=== PATIENT | female | born 1930 | race Caucasian/White ===

== ENCOUNTER 2017-06-23 09:33 | Inpatient (IN) | payer MEDICARE, OTHER ==
[2017-06-23] VITALS (22 sets, daily range): BP systolic 59–118; BP diastolic 47–82; PULSE 69–141; RESP 15–21; TEMP 97.7–100; O2SAT 93–100
[~2017-06-23] VITALS: Ht 165.1 cm; Wt 97.9 kg
[~2017-06-23 09:33] MED LIST: B COTAB3 PO; CALC-187 PO; CHOL1CAP6 PO; FLAX1300 PO; OMEGCAP19 PO; OXYB5TAB33 PO; VITA500T10 PO
[2017-06-23] MEDS ORDERED: MIDAZOLAM HCL 5 MG/ML VIAL (1 ML) ONE (09:51)
[2017-06-23] MEDS ORDERED: FLUMAZENIL 0.5 MG/5 ML VIAL ONE (09:56)
[2017-06-23] MEDS ORDERED: MIDAZOLAM HCL 5 MG/5 ML VIAL IV PUSH ONE (10:00)
[2017-06-23] MEDS ORDERED: MIDAZOLAM HCL 5 MG/ML VIAL (1 ML) IV ONE (10:00)
--- NOTE | 2017-06-23 10:10 | PD ---
HPI Chief Complaint: vomiting and diarrhea Time Seen by Provider: 09:47 Travel History International Travel<30 days: No Contact w/Intl Traveler<30days: No Traveled to known affect area: No History of Present Illness HPI This 86-year-old female complaining of vomiting and diarrhea. She says she vomited twice and had some diarrhea. She then started feeling very weak. Says the symptoms started around 2:00 this morning. She is not aware of any fever. She complaining of some tingling in her left hand and some sternal pressure which she has not had before. She has no history of heart disease. Her only medication is to treat him. She is brought by a friend who says that the patient appeared sluggish and weak while coming here. Patient says she is having a little bit of substernal discomfort and some tingling in her left arm. She has no history of heart disease. Her only medication is Ditropan. She is not short of breath. She does not smoke. She is not complaining of pain PFSH Past Medical History Cancer: Yes (RIGHT BREAST- 1 1/2 YRS WITH RADIATION ) Diabetes: No Diminished Hearing: No Hepatitis: No Hiatal Hernia: No Thyroid Disease: No Past Surgical History Abdominal Surgery: Yes (ABDOMINAL HYSTERECTOMY) Cardiac Surgery: No Ear Surgery: No Endocrine Surgery: No Eye Surgery: Yes (LEFT CATARACT EXTRACT.) Genitourinary Surgery: No Gynecologic Surgery: Yes (HYSTERECTOMY) Hysterectomy: Yes Oral Surgery: No Pacemaker: No Thoracic Surgery: Yes (RT BREAST LUMPECTOMY) Social History Alcohol Use: Yes (1 DRINK A DAY) Tobacco Use: No Substance Use: No Allergies-Medications (Allergen,Severity, Reaction): Coded Allergies: latex (Verified Allergy, Severe, 06/23/17) No Known Allergies (Verified Allergy, Unknown, 06/23/17) Reported Meds & Prescriptions Reported Meds & Active Scripts Active Reported [place] 3-6-9 Complex ([place] 3 Fatty Acids-[place] 6 Fa) Complex Cap 1 Cap PO 3X/ WEEK Flax Seed Oil (Flaxseed (Linseed)) 1,300 Mg Cap 2,600 Mg PO 4X/ WEEK Vitamin D-3 (Cholecalciferol) 1,000 Unit Tab 1,000 Unit PO DAILY B Complex (Vitamin B Complex) Tab 1 Cap PO DAILY Calcium 500/Vitamin D3 (Calcium Carbonate/Cholecalciferol) /Vit D3 Tab 1 PO DAILY Vitamin C (Ascorbic Acid) 500 Mg Tab 500 Mg PO DAILY Ditropan (Oxybutynin Chloride) 5 Mg Tab 15 Mg PO HS UNKNOWN DOSE Review of Systems General / Constitutional: No: Fever, Chills Eyes: No: Diploplia, Photophobia HENT: No: Headaches Cardiovascular: Positive: Chest Pain or Discomfort Respiratory: No: Shortness of Breath Gastrointestinal: Positive: Nausea, Vomiting, Diarrhea Genitourinary: No: Urgency, Frequency Musculoskeletal: No: Myalgias, Arthralgias Skin: No Rash, No Itching Neurologic: Positive: Weakness Psychiatric: No: Anxiety, Depression Hematologic/Lymphatic: No: Easy Bruising Physical Exam Narrative GENERAL: Well-developed female. She appears pale. Blood pressure is 70/50. Heart rate is 150 and irregular SKIN: Focused skin assessment warm/dry. HEAD: Atraumatic. Normocephalic. EYES: Pupils equal and round. No scleral icterus. No injection or drainage. ENT: No nasal bleeding or discharge. Mucous membranes pink and moist. NECK: Trachea midline. No JVD. CARDIOVASCULAR: Rapid irregular rate and rhythm. No murmur appreciated. RESPIRATORY: No accessory muscle use. Clear to auscultation. Breath sounds equal bilaterally. GASTROINTESTINAL: Abdomen soft, non-tender, nondistended. Hepatic and splenic margins not palpable. Rectal stool is brown and guaiac-negative MUSCULOSKELETAL: No obvious deformities. No clubbing. No cyanosis. No edema. NEUROLOGICAL: Awake and alert. No obvious cranial nerve deficits. Motor grossly within normal limits. Normal speech. PSYCHIATRIC: Appropriate mood and affect; insight and judgment normal. Data Data Last Documented VS Vital Signs Date Time Temp Pulse Resp B/P (MAP) Pulse Ox O2 Delivery O2 Flow Rate FiO2 06/23/17 11:08 144 85/70 06/23/17 10:29 17 93 Nasal Cannula 2.00 06/23/17 09:50 97.7 Orders Orders Electrocardiogram (06/23/17 09:49) Complete Blood Count With Diff (06/23/17 09:49) Comprehensive Metabolic Panel (06/23/17 09:49) Troponin I (06/23/17 09:49) Prothrombin Time / Inr (Pt) (06/23/17 09:49) Act Partial Throm Time (Ptt) (06/23/17 09:49) Urinalysis - C+S If Indicated (06/23/17 09:49) Magnesium (Mg) (06/23/17 09:49) Thyroid Stimulating Hormone (06/23/17 09:49) Midazolam Inj (Versed Inj) (06/23/17 09:51) Midazolam Inj (Versed Inj) (06/23/17 10:00) Flumazenil Inj (Romazicon Inj) (06/23/17 09:56) Ecg Monitoring (06/23/17 10:23) Blood Pressure (06/23/17 10:23) Vital Signs (06/23/17 10:23) Iv Access Insert/Monitor (06/23/17 10:23) Oximetry (06/23/17 10:23) Dextrose 5% In Wate... W/Amiodarone Inj (06/23/17 10:23) Dextrose 5% In Wate... W/Amiodarone Inj (06/23/17 10:38) Sodium Chloride 0.9% Flush (Ns Flush) (06/23/17 10:30) Dextrose 5% In Wate... W/Amiodarone Inj (06/23/17 10:23) Heparin Inj (Heparin Inj) (06/23/17 10:30) Heparin Inj (Heparin Inj) (06/23/17 16:30) Heparin Inj (Heparin Inj) (06/23/17 16:30) Heparin-D5w 25,000 U/250 Ml (Heparin-D5w (06/23/17 10:30) Cbc No Diff, Includes Plts (06/26/17 06:00) Act Partial Throm Time (Ptt) (06/23/17 17:23) Occult Blood (Hemoccult) Stool (06/23/17 10:23) Aspirin (Aspirin) (06/23/17 10:30) Ns + Kcl 40 Meq Inj (Ns + Kcl 40 Meq Inj (06/23/17 10:30) Flumazenil Inj (Romazicon Inj) (06/23/17 10:30) Potassium Chloride (Kcl) (06/23/17 10:30) Ondansetron Inj (Zofran Inj) (06/23/17 10:30) Potassium Chlor 20 Meq Premix (Kcl 20 Me (06/23/17 10:45) Chest, Single Ap (06/23/17 10:48) Sodium Chlor 0.9% 1000 Ml Inj (Ns 1000 M (06/23/17 11:00) Sodium Chlor 0.9% 1000 Ml Inj (Ns 1000 M (06/23/17 11:00) Sodium Chlorid 0.9% 500 Ml Inj (Ns 500 M (06/23/17 11:00) Admit To Inpatient (06/23/17 ) Code Status (06/23/17 11:10) Vital Signs (Adult) TARA.Q1H (06/23/17 11:10) Activity Bed Rest (06/23/17 11:10) Elevate Head Of Bed (06/23/17 11:10) Neuro Checks . ORDERED (06/23/17 11:10) Intake + Output Q1H (06/23/17 11:10) Bedside Glucose TARA.BGM (06/23/17 11:10) Diet Npo (06/23/17 Lunch) Sodium Chlor 0.9% 1000 Ml Inj (Ns 1000 M (06/23/17 11:10) Sodium Chloride 0.9% Flush (Ns Flush) (06/23/17 11:15) Sodium Chloride 0.9% Flush (Ns Flush) (06/23/17 21:00) Acetaminophen (Tylenol) (06/23/17 11:15) Acetamin-Hydrocod 325-5 Mg ([place]lap 5-325 (06/23/17 11:15) Famotidine (Pepcid) (06/23/17 21:00) Ondansetron Inj (Zofran Inj) (06/23/17 11:15) Albuterol-Ipratropium Neb (Duoneb Neb) (06/23/17 12:00) Albuterol Neb (Albuterol Neb) (06/23/17 11:15) Complete Blood Count With Diff (06/24/17 04:00) Comprehensive Metabolic Panel (06/24/17 04:00) Troponin I (06/23/17 16:00) Troponin I (06/23/17 22:00) Act Partial Throm Time (Ptt) (06/24/17 04:00) Prothrombin Time / Inr (Pt) (06/24/17 04:00) Magnesium (Mg) (06/24/17 04:00) Phosphorus (Po4) (06/24/17 04:00) Lactic Acid (06/24/17 04:00) Chest, Single Ap (06/24/17 ) Echo 2d Comp With Doppler (06/23/17 11:10) Resp Incentive Spirometry (06/23/17 ) Resp Oxygen Anuj C Titrat 1-4 L (06/23/17 ) Pt Request For Service (06/23/17 11:10) Derrick Engineer / Telemetry TARA.Q8H (06/23/17 11:10) Scd Bilateral/Knee High TARA.BID (06/23/17 11:10) ^ Initiate Protocol (06/23/17 11:10) Instruction (06/23/17 11:10) [facility] [place], [place] Nursing Information (06/23/17 11:15) Chlorhexidine 2% Cloth (Chlorhexidine 2% (06/24/17 04:00) Chlorhexidine 2% Cloth (Chlorhexidine 2% (06/23/17 11:15) Mrsa Pcr Surveillance (06/23/17 11:10) Docusate Sodium-Senna (Kika-Colace) (06/23/17 21:00) Magnesium Hydroxide Liq (Milk Of Magnesi (06/23/17 11:15) Sennosides (Senokot) (06/23/17 11:15) Bisacodyl Supp (Dulcolax Supp) (06/23/17 11:15) Lactulose Liq (Lactulose Liq) (06/23/17 11:15) Inpatient Certification (06/23/17 ) ^ Medication Alert (06/23/17 11:10) ^ Discontinue (06/23/17 11:10) Dextrose 5% In Wate... W/Amiodarone Inj (06/23/17 11:10) Dextrose 5% In Wate... W/Amiodarone Inj (06/23/17 11:20) Vital Signs (Adult) TARA.Q4H (06/23/17 11:10) Phenylephrine Inj (Neosynephrine Inj) (06/23/17 11:15) Terbutaline Inj (Brethine Inj) (06/23/17 11:15) Admit Order (Ed Use Only) (06/23/17 11:15) Phenylephrine Inj (Neosynephrine Inj) (06/23/17 11:15) Terbutaline Inj (Brethine Inj) (06/23/17 11:15) Morphine Inj (Morphine Inj) (06/23/17 11:15) Labs Laboratory Tests Test 06/23/17 10:00 White Blood Count 11.4 TH/MM3 Red Blood Count 4.99 MIL/MM3 Hemoglobin 14.7 GM/DL Hematocrit 46.4 % Mean Corpuscular Volume 92.8 FL Mean Corpuscular Hemoglobin 29.4 PG Mean Corpuscular Hemoglobin Concent 31.6 % Red Cell Distribution Width 14.3 % Platelet Count 263 TH/MM3 Mean Platelet Volume 9.2 FL Neutrophils (%) (Auto) 93.8 % Lymphocytes (%) (Auto) 4.0 % Monocytes (%) (Auto) 2.0 % Eosinophils (%) (Auto) 0.0 % Basophils (%) (Auto) 0.2 % Neutrophils # (Auto) 10.7 TH/MM3 Lymphocytes # (Auto) 0.5 TH/MM3 Monocytes # (Auto) 0.2 TH/MM3 Eosinophils # (Auto) 0.0 TH/MM3 Basophils # (Auto) 0.0 TH/MM3 CBC Comment DIFF FINAL Differential Comment Prothrombin Time 10.8 SEC Prothromb Time International Ratio 1.1 RATIO Activated Partial Thromboplast Time 26.6 SEC Blood Urea Nitrogen 28 MG/DL Creatinine 1.20 MG/DL Random Glucose 178 MG/DL Total Protein 6.9 GM/DL Albumin 3.6 GM/DL Calcium Level 8.2 MG/DL Magnesium Level 2.0 MG/DL Alkaline Phosphatase 78 U/L Aspartate Amino Transf (AST/SGOT) 37 U/L Alanine Aminotransferase (ALT/SGPT) 36 U/L Total Bilirubin 0.8 MG/DL Sodium Level 139 MEQ/L Potassium Level 3.4 MEQ/L Chloride Level 102 MEQ/L Carbon Dioxide Level 22.0 MEQ/L Anion Gap 15 MEQ/L Estimat Glomerular Filtration Rate 43 ML/MIN Troponin I LESS THAN 0.02 NG/ML Thyroid Stimulating Hormone 3rd Gen 3.880 uIU/ML MDM Medical Decision Making Medical Screen Exam Complete: Yes Emergency Medical Condition: Yes Medical Record Reviewed: Yes Differential Diagnosis Differential includes gastroenteritis, dysrhythmia, dehydration, myocardial ischemia Narrative Course EKG shows atrial fibrillation with rapid ventricular response. There is marked ST depression in V2 through V6 and also in the inferior and lateral leads. Patient says she has never had any heart trouble or been told of irregular heartbeats I believe this is acute. Her chest pain and hypotension warrant cardioversion. THis was explained to the patient. She was given Versed 5 mg and was cardioverted. Initially she was cardioverted with 100 J synchronized and she converted to sinus rhythm but soon degenerated back to atrial fibrillation. She was still sedated so the cardioversion was repeated with 150 J and she again converted to sinus rhythm however she went back to atrial fibrillation. After it was apparent that cardioversion would not be repeated she has been given Romazicon as her respirations are quite shallow. Hemoglobin is 14.7 with a white count of 11.4. Her potassium is slightly low at 3.4. BUNs is 28 with creatinine of 1.2. Troponin is normal. Patient responded to cardioversion but had immediate reversion to atrial fibrillation on 2 occasions. I discussed the case with Dr. Snyder who recommends that we initiate amiodarone and heparin, and transferred to the [facility] hospital. She has been given repeated boluses of fluid to maintain her pressure. He has been given aspirin. She will be given heparin and she'll be transferred to the intensive care unit. Case discussed with Dr. Topete Diagnosis Primary Impression: Atrial fibrillation with rapid ventricular response Additional Impressions: Hypotension Dehydration Admitting Information Admitting Physician Requests: it Bobo Silva MD Jun 23, 2017 10:10
[2017-06-23 10:18] LABS: AUTOMATED NEUTROPHIL # 10.7 TH/MM3 (1.8-7.7); BASOPHIL % 0.2 % (0.0-2.0); HEMATOCRIT 46.4 % (35.0-46.0); HEMOGLOBIN 14.7 GM/DL (11.6-15.3); LYMPHOCYTE # 0.5 TH/MM3 (1.0-4.8); MEAN CELL VOLUME 92.8 FL (80.0-100.0); MEAN CORPUSCULAR HEMOGLOBIN 29.4 PG (27.0-34.0); MEAN CORPUSCULAR HGB CONC 31.6 % (32.0-36.0); MEAN PLATELET VOLUME 9.2 FL (7.0-11.0); MONOCYTE # 0.2 TH/MM3 (0-0.9); NEUT % 93.8 % (16.0-70.0); PLATELET COUNT 263 TH/MM3 (150-450); RED BLOOD COUNT 4.99 MIL/MM3 (4.00-5.30); RED CELL DISTRIBUTION WIDTH 14.3 % (11.6-17.2); WHITE BLOOD COUNT 11.4 TH/MM3 (4.0-11.0)
[2017-06-23] MEDS: AMIODARONE INJ 150 MG in DEXTROSE 5% IN WATER 100ML INJ 97 ML IV ONE ×4 (10:23→11:08)
[2017-06-23] MEDS ORDERED: AMIODARONE INJ 150 MG in DEXTROSE 5% IN WATER 100ML INJ 97 ML IV ONE ×2 (10:23)
[2017-06-23 10:24] LABS: CHLORIDE 102 MEQ/L (98-107); SODIUM (NA) 139 MEQ/L (136-145)
[2017-06-23 10:27] LABS: CALCIUM 8.2 MG/DL (8.5-10.1)
[2017-06-23 10:28] LABS: ALBUMIN 3.6 GM/DL (3.4-5.0); BLOOD UREA NITROGEN 28 MG/DL (7-18); GLUCOSE,RANDOM 178 MG/DL (74-106)
[2017-06-23] MEDS ORDERED: NS + KCL 40 MEQ INJ 1,000 ML IV SCH (10:30)
[2017-06-23] MEDS ORDERED: ONDANSETRON HCL 4 MG/2 ML VIAL IV PUSH ONE (10:30)
[2017-06-23] MEDS ORDERED: POTASSIUM CHLORIDE 20 MEQ CONTROLLED RELEASE TAB PO ONE (10:30)
[2017-06-23] MEDS ORDERED: FLUMAZENIL 0.5 MG/5 ML VIAL IV PUSH ONE (10:30)
[2017-06-23] MEDS ORDERED: HEPARIN SODIUM - IV 10,000 UNITS/10 ML VIAL IV PUSH ONE (10:30)
[2017-06-23] MEDS ORDERED: ASPIRIN 325 MG TAB PO ONE (10:30)
[2017-06-23] MEDS ORDERED: SODIUM CHLORIDE 0.9% FLUSH 10 ML FLUSH IVF PRN (10:30)
[2017-06-23 10:31] LABS: ALT (GPT) 36 U/L (10-53); AST (GOT) 37 U/L (15-37); GLOMERULAR FILTRATION RATE 43 ML/MIN (>89)
[2017-06-23 10:33] LABS: TOTAL BILIRUBIN ADULT 0.8 MG/DL (0.2-1.0); TOTAL PROTEIN 6.9 GM/DL (6.4-8.2)
[2017-06-23 10:34] LABS: ALKALINE PHOSPHATASE 78 U/L (45-117)
[2017-06-23 10:36] LABS: TROPONIN I LESS THAN 0.02 NG/ML (0.02-0.05)
[2017-06-23] MEDS ORDERED: AMIODARONE INJ 450 MG in DEXTROSE 5% IN WATE(EXCEL) INJ 241 ML IV SCH ×2 (10:38)
[2017-06-23] MEDS ORDERED: POTASSIUM CHLOR 20 MEQ PREMIX 100 ML IV ONE (10:45)
[2017-06-23] MEDS ORDERED: SODIUM CHLORID 0.9% 500 ML INJ 500 ML IV ONE (11:00)
[2017-06-23] MEDS ORDERED: SODIUM CHLOR 0.9% 1000 ML INJ 1,000 ML IV ONE ×2 (11:00)
[2017-06-23] MEDS: SODIUM CHLOR 0.9% 1000 ML INJ 1,000 ML IV SCH ×2 (11:10→23:05)
[2017-06-23] MEDS ORDERED: AMIODARONE INJ 150 MG in DEXTROSE 5% IN WATER 100ML INJ 100 ML IV ONE ×2 (11:10)
[2017-06-23] MEDS ORDERED: RESP: ALBUTEROL 2.5 MG/3 ML NEB (PRN) INH (11:15)
[2017-06-23] MEDS ORDERED: MORPHINE SULFATE 2 MG/ML INJ IV PUSH PRN (11:15)
[2017-06-23] MEDS ORDERED: ONDANSETRON HCL 4 MG/2 ML VIAL IV PUSH PRN (11:15)
[2017-06-23] MEDS ORDERED: CHLORHEXIDINE GLUCONATE 2 % 1 PACK (2 CLOTHS) TOP PRN (11:15)
[2017-06-23] MEDS ORDERED: SENNOSIDES 8.6 MG TAB PO PRN (11:15)
[2017-06-23] MEDS ORDERED: MAGNESIUM HYDROXIDE SUSP 30 ML CUP PO PRN (11:15)
[2017-06-23] MEDS ORDERED: BISACODYL 10 MG SUPP RECTAL PRN (11:15)
[2017-06-23] MEDS ORDERED: MISCELLANEOUS NURSING INFORMATION XX SCH (11:15)
[2017-06-23] MEDS ORDERED: LACTULOSE SYRUP 20 GM/30 ML CUP PO PRN (11:15)
[2017-06-23] MEDS ORDERED: ACETAMINOPHEN 325 MG TAB PO PRN (11:15)
[2017-06-23] MEDS ORDERED: PHENYLEPHRINE INJ 40 MG in DEXTROSE 5% IN WATE 500 ML INJ 496 ML IV PRN ×2 (11:15)
[2017-06-23] MEDS ORDERED: SODIUM CHLORIDE 0.9% FLUSH 10 ML FLUSH IV FLUSH PRN (11:15)
[2017-06-23] MEDS ORDERED: PHENYLEPHRINE INJ 160 MG in DEXTROSE 5% IN WATE 500 ML INJ 484 ML IV PRN ×2 (11:15)
[2017-06-23] MEDS ORDERED: ACETAMINOPHEN/HYDROcodone 325 MG/5 MG TAB PO PRN (11:15)
[2017-06-23] MEDS ORDERED: TERBUTALINE INJ 1 MG/ML AMP SQ PRN ×2 (11:15)
[2017-06-23 11:16] LABS: INTERNATIONAL NORMALIZED RATIO 1.1 RATIO; PROTHROMBIN TIME - PATIENT 10.8 SEC (9.8-11.6)
--- NOTE | 2017-06-23 11:19 | RADRPT ---
EXAM DATE/TIME: 06/23/2017 10:56 [facility] COMPARISON: No previous studies available for comparison. INDICATIONS : Nausea, vomiting, dizziness. MEDICAL HISTORY : right breast cancer SURGICAL HISTORY : right lumpectomy ENCOUNTER: Initial ACUITY: 1 day PAIN SCORE: 0/10 LOCATION: Bilateral chest FINDINGS: A single portable frontal view the chest shows chronic interstitial changes throughout the lungs bila terally. No intra-alveolar infiltrates. No effusions. Heart is at the upper limits of normal in terms of size. Aorta is calcified. Scoliotic and degenerative spine. CONCLUSION: Chronic interstitial changes. No acute abnormality. Fred William Jr., MD on June 23, 2017 at 11:16 Board Certified Radiologist. This report was verified electronically.
[2017-06-23] MEDS: HEPARIN-D5W 25,000 U/250 ML 250 ML IV PRN (11:38)
[2017-06-23 11:50] LABS: BILIRUBIN, URINE NEG (NEG); BLOOD, URINE NEG (NEG); GLUCOSE,URINE NEG (NEG); KETONE, URINE 40 mg/dL (NEG); NITRITE,URINE NEG (NEG); URINE LEUKOCYTE ESTERASE NEG (NEG)
[2017-06-23] MEDS ORDERED: RESP: ALBUTEROL 2.5 MG/IPRATROPIUM 0.5 MG NEB (SCH) INH (12:00)
[2017-06-23] MEDS ORDERED: SODIUM CHLOR 0.9% 1000 ML INJ 1,000 ML IV SCH (12:15)
[2017-06-23 12:21] LABS: URINE COLOR YELLOW (YELLW/STRAW); WBC, URINE 0-2 /hpf (0-5)
[2017-06-23] MEDS ORDERED: DITR15TA PO (14:13)
[2017-06-23] MEDS ORDERED: HEPARIN SODIUM - IV 10,000 UNITS/10 ML VIAL IV PUSH PRN ×2 (16:30)
[2017-06-23] MEDS ORDERED: POTASSIUM CHLOR 20 MEQ PREMIX 100 ML IV PRN ×2 (18:00→18:30)
[2017-06-23] MEDS ORDERED: POTASSIUM CHLOR 40 MEQ PREMIX 100 ML IV PRN ×2 (18:00→18:30)
[2017-06-23] MEDS ORDERED: AMIODARONE INJ 450 MG in DEXTROSE 5% IN WATE(EXCEL) INJ 241 ML IV PRN ×2 (18:00)
--- NOTE | 2017-06-23 18:02 | HHI.HP ---
[facility] Service Critical Care Medicine Primary Care Physician Sveta Marquis MD Admission Diagnosis RAPID ATRIAL FIBRILLATION, HYPOTENSION Diagnosis: (1) Atrial fibrillation with RVR Diagnosis: Principal (2) Hypotension Diagnosis: Principal (3) NSTEMI (non-ST elevated myocardial infarction) Diagnosis: Principal (4) Viral syndrome Diagnosis: Principal (5) CORETTA (acute kidney injury) Diagnosis: Principal (6) Dehydration Diagnosis: Principal Chief Complaint: Atrial fibrillation with rapid ventricular response Hypotension Elevated troponin/NSTEMI Travel History International Travel<30 Days: No Contact w/Intl Traveler <30 Da: No Traveled to Known Affected Are: No Sepsis Criteria SIRS Criteria (2 or more): Heart rate over 90 Criteria Outcome: Meets SIRS criteria History of Present Illness Patient is a 86-year-old female with past medical history significant only for breast cancer. She presented to [place] emergency department with complaints of generalized weakness and vomiting and diarrhea. Denied fever. Initially complained of some sternal pressure also. In the ER also had some substernal discomfort and tingling in her left UE. Initially was profoundly hypotensive with systolic blood pressure in the mid 50s heart rate in mid 140s. EKG shows atrial fibrillation with rapid ventricular response with ST depression in V2 through V6 and the inferior and lateral leads. Due to hemodynamic instability patient patient was given Versed 5 mg and was cardioverted initially with 100 J synchronized and she converted to sinus rhythm but went back to atrial fibrillation; repeated with 150 J and again converted to NSR and went back to atrial fibrillation. Respiration was quite shallow with the Versed and so further cardioversions not attempted. Labs showed WBC 11.4. potassium is slightly low at 3.4. BUN 28 with creatinine of 1.2. Initial Troponin was normal. Dr. Miramontes discussed the case with Dr. Snyder and started IV amiodarone and IV heparin and transferred to [facility]. Patient received multiple boluses of crystalloid and also received aspirin I evaluated the patient once she arrived in the main hospital ICU. Patient appears to have converted to sinus rhythm currently remains on amiodarone and IV heparin. Appears in mild distress and anxious. Her new troponin is 3. 2-D echo is pending. Continue IV heparin and IV amiodarone. Placed on scheduled aspirin. Placed on low-dose Coreg. Also will start Lipitor 40 mg daily at bedtime. Review of Systems ROS Limitations: Other (as per HPI) Past Family Social History Allergies: Coded Allergies: latex (Verified Allergy, Severe, 06/23/17) No Known Allergies (Verified Allergy, Unknown, 06/23/17) Past Medical History History of right sided breast cancer treated with lumpectomy and radiation History of squamous cell cancer of the leg Past Surgical History Cataract surgery Right lumpectomy Abdominal hysterectomy Reported Medications [place] 3-6-9 Complex ([place] 3 Fatty Acids-[place] 6 Fa) Complex Cap 1 Cap PO 3X/ WEEK Flax Seed Oil (Flaxseed (Linseed)) 1,300 Mg Cap 2,600 Mg PO 4X/ WEEK Vitamin D-3 (Cholecalciferol) 1,000 Unit Tab 1,000 Unit PO DAILY B Complex (Vitamin B Complex) Tab 1 Cap PO DAILY Calcium 500/Vitamin D3 (Calcium Carbonate/Cholecalciferol) /Vit D3 Tab 1 PO DAILY Vitamin C (Ascorbic Acid) 500 Mg Tab 500 Mg PO DAILY Ditropan (Oxybutynin Chloride) 5 Mg Tab 15 Mg PO HS Active Ordered Medications Reviewed Family History Noncontributory Social History Apparently consumes 1 alcoholic beverage daily Physical Exam Vital Signs Vital Signs Date Time Temp Pulse Resp B/P (MAP) Pulse Ox O2 Delivery O2 Flow Rate FiO2 06/23/17 16:00 79 06/23/17 15:38 98 Nasal Cannula 3.00 06/23/17 15:01 98.0 73 18 110/69 (83) 06/23/17 14:00 79 06/23/17 12:25 137 16 102/74 (83) 98 06/23/17 12:15 124 16 97/56 (70) 06/23/17 12:05 100.0 124 17 110/82 (91) Nasal Cannula 2.00 06/23/17 12:00 100.0 125 16 94/68 (77) Nasal Cannula 2.00 06/23/17 11:56 133 17 78/58 (65) 100 Nasal Cannula 2.00 06/23/17 11:50 129 18 85/70 (75) 96 Nasal Cannula 2.00 06/23/17 11:48 124 17 78/62 (67) 100 Nasal Cannula 06/23/17 11:22 120 68/55 06/23/17 11:00 135 76/55 06/23/17 10:40 140 17 79/54 (62) 96 Nasal Cannula 2.00 06/23/17 10:30 133 85/58 06/23/17 10:29 125 17 94/49 (64) 93 Nasal Cannula 2.00 06/23/17 10:21 128 16 75/51 (59) 93 Nasal Cannula 2.00 06/23/17 10:16 133 16 74/48 (57) 97 Nasal Cannula 2.00 06/23/17 10:10 135 16 78/59 (65) 94 Nasal Cannula 2.00 06/23/17 10:00 138 65/52 (56) Nasal Cannula 2.00 06/23/17 09:50 97.7 141 16 59/47 (51) Physical Exam GENERAL: Well-developed female. Appears pale. Denies chest pain or palpitation SKIN: Warm and dry HEAD: Atraumatic. Normocephalic. EYES: Pupils equal and round. ENT: No nasal bleeding or discharge. NECK: Trachea midline. No JVD. CARDIOVASCULAR: S1-S2 normal. Unable to appreciate murmurs. Receiving IV heparin and IV amiodarone RESPIRATORY: No accessory muscle use. Clear to auscultation. Breath sounds equal bilaterally. GASTROINTESTINAL: Abdomen soft, non-tender, nondistended. Hepatic and splenic margins not palpable. MUSCULOSKELETAL: No obvious deformities. NEUROLOGICAL: Awake and alert. No obvious cranial nerve deficits. Motor grossly within normal limits. Normal speech. Laboratory Laboratory Tests Test 06/23/17 10:00 06/23/17 11:41 06/23/17 13:30 06/23/17 16:59 White Blood Count 11.4 Red Blood Count 4.99 Hemoglobin 14.7 Hematocrit 46.4 Mean Corpuscular Volume 92.8 Mean Corpuscular Hemoglobin 29.4 Mean Corpuscular Hemoglobin Concent 31.6 Red Cell Distribution Width 14.3 Platelet Count 263 Mean Platelet Volume 9.2 Neutrophils (%) (Auto) 93.8 Lymphocytes (%) (Auto) 4.0 Monocytes (%) (Auto) 2.0 Eosinophils (%) (Auto) 0.0 Basophils (%) (Auto) 0.2 Neutrophils # (Auto) 10.7 Lymphocytes # (Auto) 0.5 Monocytes # (Auto) 0.2 Eosinophils # (Auto) 0.0 Basophils # (Auto) 0.0 CBC Comment DIFF FINAL Differential Comment Prothrombin Time 10.8 Prothromb Time International Ratio 1.1 Activated Partial Thromboplast Time 26.6 Blood Urea Nitrogen 28 Creatinine 1.20 Random Glucose 178 Total Protein 6.9 Albumin 3.6 Calcium Level 8.2 Magnesium Level 2.0 Alkaline Phosphatase 78 Aspartate Amino Transf (AST/SGOT) 37 Alanine Aminotransferase (ALT/SGPT) 36 Total Bilirubin 0.8 Sodium Level 139 Potassium Level 3.4 Chloride Level 102 Carbon Dioxide Level 22.0 Anion Gap 15 Estimat Glomerular Filtration Rate 43 Troponin I LESS THAN 0.02 Thyroid Stimulating Hormone 3rd Gen 3.880 Urine Collection Type CLEAN CATCH Urine Color YELLOW Urine Turbidity CLEAR Urine pH 6.0 Urine Specific [place] 1.016 Urine Protein TRACE Urine Glucose (UA) NEG Urine Ketones 40 Urine Occult Blood NEG Urine Nitrite NEG Urine Bilirubin NEG Urine Leukocyte Esterase NEG Urine WBC 0-2 Microscopic Urinalysis Comment CULT NOT INDICATED Urine Collection Time 1141 Nasal Screen MRSA (PCR) MRSA NOT DETECTED Test 06/23/17 17:09 Result Diagram: 06/23/17 1000 06/23/17 1000 Imaging Chest x-ray shows chronic appearing interstitial infiltrates Septic Shock Reassessment Septic shock perfusion: reassessment completed Caprini VTE Risk Assessment Caprini VTE Risk Assessment: Mod/High Risk (score >= 2) Caprini Risk Assessment Model Point Value = 1 Point Value = 2 Point Value = 3 Point Value = 5 Age 41-60 Minor surgery BMI > 25 kg/m2 Swollen legs Varicose veins or History of unexplained or recurrent spontaneous Oral contraceptives or hormone replacement Sepsis (< 1 month) Serious lung disease, including pneumonia (< 1 month) Abnormal pulmonary function Acute myocardial infarction Congestive heart failure (< 1 month) History of inflammatory bowel disease Medical patient at bed rest Age 61-74 Arthroscopic surgery Major open surgery (> 45 min) Laparoscopic surgery (> 45 min) Malignancy Confined to bed (> 72 hours) Immobilizing plaster cast Central venous access Age >= 75 History of VTE Family history of VTE Factor V Leiden Prothrombin [id number] Lupus anticoagulant Anticardiolipin antibodies Elevated serum homocysteine Heparin-induced thrombocytopenia Other congenital or acquired thrombophilia Stroke (< 1 month) Elective arthroplasty Hip, pelvis, or leg fracture Acute spinal cord injury (< 1 month) Prophylaxis Regimen Total Risk Factor Score Risk Level Prophylaxis Regimen 0-1 Low Early ambulation 2 Moderate Order ONE of the following: *Sequential Compression Device (SCD) *Heparin 5000 units SQ BID 3-4 Higher Order ONE of the following medications: *Heparin 5000 units SQ TID *Enoxaparin/Lovenox 40 mg SQ daily (WT < 150 kg, CrCl > 30 mL/min) *Enoxaparin/Lovenox 30 mg SQ daily (WT < 150 kg, CrCl > 10-29 mL/min) *Enoxaparin/Lovenox 30 mg SQ BID (WT < 150 kg, CrCl > 30 mL/min) AND/OR *Sequential Compression Device (SCD) 5 or more Highest Order ONE of the following medications: *Heparin 5000 units SQ TID (Preferred with Epidurals) *Enoxaparin/Lovenox 40 mg SQ daily (WT < 150 kg, CrCl > 30 mL/min) *Enoxaparin/Lovenox 30 mg SQ daily (WT < 150 kg, CrCl > 10-29 mL/min) *Enoxaparin/Lovenox 30 mg SQ BID (WT < 150 kg, CrCl > 30 mL/min) AND *Sequential Compression Device (SCD) Assessment and Plan Assessment and Plan NEURO: - Minimize sedation - Supplement thiamine RESP: - Nasal cannula oxygen, if needed - IS every 4 hours while awake - Check for influenza due to bilateral lung infiltrates CV: Atrial fibrillation with RVR Hypotension Elevated troponin/non-ST elevation OR - Status post cardioversion 2 - On amiodarone infusion converted to sinus rhythm - Continue IV heparin - Continue maintenance IV fluids - Start aspirin and beta blockers. Start Lipitor 40 mg daily - Await 2-D echo, discussed with Dr. Snyder - Normal saline IV fluids 84 mL per hour, await 2d echo, cardiology consult, repeat troponin - Adam-Synephrine if needed to keep map above 65 GI: - Heart healthy diet, PO famotidine : Acute kidney injury Dehydration - Monitor renal function closely. Continue maintenance IV fluids - Received fluid boluses in the ED ID: - Check influenza antigen. Observe without antibiotics HEME: - Monitor CBC, CMP, coags ENDO: Hypokalemia - Electrolyte replacement per protocol PROPH: - Bilateral lower extremity SCDs. IV heparin, PO famotidine LINES: - Utilize peripheral IVs, central line if needed CC time 45 min Code Status Full Discussed Condition With Dr. Snyder Problem Qualifiers (1) Hypotension: Qualified Codes: I95.9 - Hypotension, unspecified Christiano Kuhn MD Jun 23, 2017 18:02
[2017-06-23] MEDS ORDERED: ASPIRIN 81 MG CHEW TAB CHEW SCH (18:15)
[2017-06-23] MEDS ORDERED: MAGNESIUM SULFATE INJ 2 GM in SODIUM CHLORIDE 0.9% INJ 96 ML IV PRN (18:30)
[2017-06-23] MEDS ORDERED: MAGNESIUM SULFATE INJ 4 GM in SODIUM CHLORIDE 0.9% INJ 92 ML IV PRN (18:30)
[2017-06-23] MEDS ORDERED: SODIUM PHOSPHATE INJ 30 MMOL in SODIUM CHLOR 0.9% 250 ML INJ 240 ML IV PRN (18:30)
[2017-06-23] MEDS ORDERED: MAGNESIUM OXIDE 400 MG TAB PO PRN (18:30)
[2017-06-23] MEDS ORDERED: POTASSIUM CHLORIDE 25 MEQ EFFERVESCENT TAB PO PRN (18:30)
[2017-06-23] MEDS ORDERED: POTASSIUM PHOSPHATE MONOBASIC 500 MG TAB PO/TUBE PRN (18:30)
[2017-06-23] MEDS ORDERED: POTASSIUM PHOSPHATE MONOBASIC 500 MG TAB PO PRN (18:30)
[2017-06-23] MEDS ORDERED: POTASSIUM PHOSPHATE INJ 30 MMOL in SODIUM CHLOR 0.9% 250 ML INJ 250 ML IV PRN (18:45)
--- NOTE | 2017-06-23 18:52 | PD.CONS ---
HPI Consult Requested By Primary Care Physician Sveta Marquis MD History of Present Illness 86-year-old F with past medical history significant for breast cancer that presented to [facility] emergency department with complaints of generalized weakness, vomiting and diarrhea and mild chest pressure. She was found hypotensive on Afib with RVR 140s with ST depression in V2 through V6 and the inferior and lateral leads. Due to hemodynamic instability she was cardioverted but went back to atrial fibrillation; repeated with 150 J and again converted to NSR and went back to atrial fibrillation. IV amiodarone and IV heparin and transferred to [facility]. Cardiology consulted for further management and evaluation. Review of Systems Consitutional: DENIES: Fatigue, Fever, Chills, Weight gain, Weight loss Eyes: DENIES: Amaurosis Fug[place], Change in vision HEENT: DENIES: Lightheadedness, Change in hearing Respiratory: DENIES: See HPI, Cough, Snoring, Shortness of breath, Wheezing, Sputum production Cardiovascular: COMPLAINS OF: See HPI, DENIES: Chest pain, Palpitations, Syncope, Tachycardia Gastrointestinal: COMPLAINS OF: Nausea, Vomiting, Change in bowel habits, DENIES: Reflux, Bloody stools, Melena Genitourinary: DENIES: Urinary incontinence, Difficulty voiding Integumentary: DENIES: Rash Neurologic: DENIES: Tingling or numbness, Memory problems, Poor Balance, Stroke symptoms Musculoskeletal: DENIES: Joint pain, Muscle pain, Limited range of motion, Back pain Psychiatric: DENIES: Anxiety, Depression, Sleep disturbances Hematologic: DENIES: Bruising tendencies, Bleeding tendencies Endocrine: DENIES: Weight gain, Weight loss, Thyroid disease Past Family Social History Allergies: Coded Allergies: latex (Verified Allergy, Severe, 06/23/17) No Known Allergies (Verified Allergy, Unknown, 06/23/17) Past Medical History History of right sided breast cancer treated with lumpectomy and radiation History of squamous cell cancer of the leg Past Surgical History Cataract surgery Right lumpectomy Abdominal hysterectomy Reported Medications Reported Meds & Active Scripts Active Reported Ditropan XL 24 HR (Oxybutynin Chloride) 15 Mg Tab 15 Mg PO HS Active Ordered Medications Current Medications Medications (Trade) Dose Ordered Sig/Joseph Route Start Time Stop Time Status Last Admin (NS Flush) 2 ml UNSCH PRN IVF 06/23/17 10:30 (Heparin Inj) 5,000 units UNSCH PRN IV PUSH 06/23/17 16:30 (Heparin Inj) 2,500 units UNSCH PRN IV PUSH 06/23/17 16:30 Heparin Sodium/ Dextrose 250 ml @ 8 mls/hr TITRATE PRN IV 06/23/17 10:30 06/23/17 11:38 Sodium Chloride 1,000 ml @ 84 mls/hr [id number] IV 06/23/17 11:10 06/23/17 11:10 (NS Flush) 2 ml UNSCH PRN IV FLUSH 06/23/17 11:15 (NS Flush) 2 ml BID IV FLUSH 06/23/17 21:00 (Tylenol) 650 mg Q6H PRN PO 06/23/17 11:15 ([place] 5-325 Mg) 1 tab Q4H PRN PO 06/23/17 11:15 (Morphine Inj) 2 mg Q2H PRN IV PUSH 06/23/17 11:15 (Pepcid) 20 mg Q12HR PO 06/23/17 21:00 (Zofran Inj) 4 mg Q6H PRN IV PUSH 06/23/17 11:15 (Albuterol Neb) 2.5 mg Q2HR NEB PRN INH 06/23/17 11:15 Miscellaneous Information 1 [id number] XX 06/23/17 11:15 (Chlorhexidine 2% Cloth) 3 pack Taper DAILY@04 TOP 06/24/17 04:00 06/20/18 03:59 (Chlorhexidine 2% Cloth) 3 pack UNSCH PRN TOP 06/23/17 11:15 (Kika-Colace) 1 tab BID PO 06/23/17 21:00 (Milk Of Magnesia Liq) 30 ml Q12H PRN PO 06/23/17 11:15 (Senokot) 17.2 mg Q12H PRN PO 06/23/17 11:15 (Dulcolax Supp) 10 mg DAILY PRN RECTAL 06/23/17 11:15 (Lactulose Liq) 30 ml DAILY PRN PO 06/23/17 11:15 Amiodarone HCl 450 mg/Dextrose 250 ml @ 33.33 mls/ hr Q7H31M PRN IV 06/23/17 18:00 Phenylephrine HCl 160 mg/Dextrose 500 ml @ 7.5 mls/hr TITRATE PRN IV 06/23/17 11:15 (Brethine Inj) 1 mg UNSCH PRN SQ 06/23/17 11:15 Potassium Chloride 100 ml @ 50 mls/hr Q2H PRN IV 06/23/17 18:00 Potassium Chloride 100 ml @ 50 mls/hr Q2H PRN IV 06/23/17 18:00 (K-Lyte Cl Eff) 50 meq UNSCH PRN PO 06/23/17 18:30 Potassium Chloride 100 ml @ 25 mls/hr UNSCH PRN IV 06/23/17 18:30 Potassium Chloride 100 ml @ 50 mls/hr Q2H PRN IV 06/23/17 18:30 Magnesium Sulfate 4 gm/Sodium Chloride 100 ml @ 50 mls/hr UNSCH PRN IV 06/23/17 18:30 (Mag-Ox) 800 mg UNSCH PRN PO 06/23/17 18:30 Magnesium Sulfate 2 gm/Sodium Chloride 100 ml @ 50 mls/hr UNSCH PRN IV 06/23/17 18:30 (K-Phos) 2,000 mg Q4H PRN PO 06/23/17 18:30 Sodium Phosphate 30 mmol/Sodium Chloride 250 ml @ 42 mls/hr UNSCH PRN IV 06/23/17 18:30 (K-Phos) 2,000 mg UNSCH PRN PO/TUBE 06/23/17 18:30 Potassium Phosphate 30 mmol/ Sodium Chloride 260 ml @ 42 mls/hr UNSCH PRN IV 06/23/17 18:45 (Vitamin B1) 100 mg DAILY PO 06/24/17 09:00 (Aspirin Chew) 81 mg DAILY CHEW 06/23/17 18:15 UNV (Coreg) 3.125 mg Q12HR PO 06/23/17 21:00 (Duoneb Neb) 1 ampule Q6HR NEB INH 06/23/17 22:00 (Lipitor) 40 mg HS PO 06/23/17 21:00 Family History Noncontributory Social History Apparently consumes 1 alcoholic beverage daily Physical Exam Vital Signs Vital Signs Date Time Temp Pulse Resp B/P (MAP) Pulse Ox O2 Delivery O2 Flow Rate FiO2 06/23/17 18:00 79 06/23/17 16:00 79 06/23/17 15:38 98 Nasal Cannula 3.00 06/23/17 15:01 98.0 73 18 110/69 (83) 06/23/17 14:00 79 06/23/17 12:25 137 16 102/74 (83) 98 06/23/17 12:15 124 16 97/56 (70) 06/23/17 12:05 100.0 124 17 110/82 (91) Nasal Cannula 2.00 06/23/17 12:00 100.0 125 16 94/68 (77) Nasal Cannula 2.00 06/23/17 11:56 133 17 78/58 (65) 100 Nasal Cannula 2.00 06/23/17 11:50 129 18 85/70 (75) 96 Nasal Cannula 2.00 06/23/17 11:48 124 17 78/62 (67) 100 Nasal Cannula 06/23/17 11:22 120 68/55 06/23/17 11:00 135 76/55 06/23/17 10:40 140 17 79/54 (62) 96 Nasal Cannula 2.00 06/23/17 10:30 133 85/58 06/23/17 10:29 125 17 94/49 (64) 93 Nasal Cannula 2.00 06/23/17 10:21 128 16 75/51 (59) 93 Nasal Cannula 2.00 06/23/17 10:16 133 16 74/48 (57) 97 Nasal Cannula 2.00 06/23/17 10:10 135 16 78/59 (65) 94 Nasal Cannula 2.00 06/23/17 10:00 138 65/52 (56) Nasal Cannula 2.00 06/23/17 09:50 97.7 141 16 59/47 (51) Physical Exam GENERAL: Well-nourished, well-developed patient. SKIN: Warm and dry. HEAD: Normocephalic. EYES: No scleral icterus. No injection or drainage. NECK: Supple, trachea midline. No JVD or lymphadenopathy. CARDIOVASCULAR: Regular rate and rhythm without murmurs, gallops, or rubs. RESPIRATORY: Breath sounds equal bilaterally. No accessory muscle use. GASTROINTESTINAL: Abdomen soft, non-tender, nondistended. EXTREMITIES: No cyanosis, or edema. NEUROLOGICAL: Awake, alert, and oriented x 3. Non-focal. Laboratory Laboratory Tests Test 06/23/17 10:00 06/23/17 11:41 06/23/17 13:30 06/23/17 16:59 White Blood Count 11.4 Red Blood Count 4.99 Hemoglobin 14.7 Hematocrit 46.4 Mean Corpuscular Volume 92.8 Mean Corpuscular Hemoglobin 29.4 Mean Corpuscular Hemoglobin Concent 31.6 Red Cell Distribution Width 14.3 Platelet Count 263 Mean Platelet Volume 9.2 Neutrophils (%) (Auto) 93.8 Lymphocytes (%) (Auto) 4.0 Monocytes (%) (Auto) 2.0 Eosinophils (%) (Auto) 0.0 Basophils (%) (Auto) 0.2 Neutrophils # (Auto) 10.7 Lymphocytes # (Auto) 0.5 Monocytes # (Auto) 0.2 Eosinophils # (Auto) 0.0 Basophils # (Auto) 0.0 CBC Comment DIFF FINAL Differential Comment Prothrombin Time 10.8 Prothromb Time International Ratio 1.1 Activated Partial Thromboplast Time 26.6 Blood Urea Nitrogen 28 Creatinine 1.20 Random Glucose 178 Total Protein 6.9 Albumin 3.6 Calcium Level 8.2 Magnesium Level 2.0 Alkaline Phosphatase 78 Aspartate Amino Transf (AST/SGOT) 37 Alanine Aminotransferase (ALT/SGPT) 36 Total Bilirubin 0.8 Sodium Level 139 Potassium Level 3.4 Chloride Level 102 Carbon Dioxide Level 22.0 Anion Gap 15 Estimat Glomerular Filtration Rate 43 Troponin I LESS THAN 0.02 3.06 Thyroid Stimulating Hormone 3rd Gen 3.880 Urine Collection Type CLEAN CATCH Urine Color YELLOW Urine Turbidity CLEAR Urine pH 6.0 Urine Specific [place] 1.016 Urine Protein TRACE Urine Glucose (UA) NEG Urine Ketones 40 Urine Occult Blood NEG Urine Nitrite NEG Urine Bilirubin NEG Urine Leukocyte Esterase NEG Urine WBC 0-2 Microscopic Urinalysis Comment CULT NOT INDICATED Urine Collection Time 1141 Nasal Screen MRSA (PCR) MRSA NOT DETECTED Test 06/23/17 17:09 Activated Partial Thromboplast Time 79.4 Result Diagram: 06/23/17 1000 06/23/17 1000 Imaging Last Impressions Chest X-Ray 06/23/17 1048 Signed Impressions: Service Date/Time: May 10:56 - CONCLUSION: Chronic interstitial changes. No acute abnormality. Fred William Jr., MD Assessment and Plan Problem List: (1) Atrial fibrillation with RVR ICD Codes: I48.91 - Unspecified atrial fibrillation Plan: Patient converted to sinus rhythm. Currently remains on amiodarone and IV heparin. Denies CV complaints. Troponin elevation in the setting of several cardioversions. Recommendations: - Continue IV heparin and IV amiodarone. - Echo - Telemetry - Avoid electrolytes abnormalities - IV hydration -Keep NPO for LHC +/- PCI Risk benefits of LHC +/- PCI including but not limited to neurovascular trauma, bleeding, renal failure, stroke, emergent cardiac surgery and , have been explain to patient. He understands and agreed to proceed. Thank for the opportunity to participate in the care of this patient Further therapy to be determine (2) Hypotension ICD Codes: I95.9 - Hypotension, unspecified (3) Viral syndrome ICD Codes: B34.9 - Viral infection, unspecified (4) Dehydration ICD Codes: E86.0 - Dehydration (5) [place] (acute kidney injury) ICD Codes: N17.9 - Acute kidney failure, unspecified Problem Qualifiers (1) Hypotension: Qualified Codes: I95.9 - Hypotension, unspecified Parminder Wilder MD Jun 23, 2017 18:52
[2017-06-23 19:47] LABS: MAGNESIUM 1.8 MG/DL (1.5-2.5); PHOSPHORUS 3.7 MG/DL (2.5-4.9)
[2017-06-23] MEDS ORDERED: AMIODARONE INJ 450 MG in SODIUM CHLOR 0.9% 250 ML INJ 241 ML IV PRN (20:00)
[2017-06-23] MEDS: RESP: ALBUTEROL 2.5 MG/IPRATROPIUM 0.5 MG NEB (SCH) INH (20:26)
[2017-06-23] MEDS: CARVEDILOL 3.125 MG TAB PO SCH (20:52)
[2017-06-23] MEDS: SODIUM CHLORIDE 0.9% FLUSH 10 ML FLUSH IV FLUSH SCH (20:52)
[2017-06-23] MEDS: ATORVASTATIN 40 MG TAB PO SCH (20:52)
[2017-06-23] MEDS: FAMOTIDINE 20 MG TAB PO SCH (20:52)
[2017-06-23] MEDS: DOCUSATE SODIUM 50 MG/SENNA 8.6 MG TAB PO SCH (20:53)
--- NOTE | 2017-06-23 22:51 | EKG ---
Date Performed: 06/23/2017 Time Performed: 09:49:39 PTAGE: 86 years EKG: ATRIAL FIBRILLATION WITH RAPID VENTRICULAR RESPONSE MARKED ST DEPRESSION, CONSIDER SUBENDO CARDIAL INJURY ABNORMAL ECG PREVIOUS TRACING : 05/08/2012 13.45 Compared to prior tracing, now in Afib with RVR with extens major ST/T wave changes DOCTOR: Patricio Gong Interpretating Date/Time 06/23/2017 22:50:09
[2017-06-23] MEDS ORDERED: diphenhydrAMINE HCL 25 MG CAP PO PRN (23:00)
[2017-06-24] VITALS (11 sets, daily range): BP systolic 119–190; BP diastolic 60–87; PULSE 60–75; RESP 19–21; TEMP 98.3–99.3; O2SAT 92–99
[2017-06-24 02:21] LABS: AUTOMATED NEUTROPHIL # 5.7 TH/MM3 (1.8-7.7); BASOPHIL % 0.3 % (0.0-2.0); EOSINOPHIL % 0.1 % (0.0-4.0); HEMOGLOBIN 12.3 GM/DL (11.6-15.3); LYMPH % 7.2 % (9.0-44.0); LYMPHOCYTE # 0.5 TH/MM3 (1.0-4.8); MEAN CORPUSCULAR HEMOGLOBIN 31.1 PG (27.0-34.0); MEAN CORPUSCULAR HGB CONC 34.2 % (32.0-36.0); MEAN PLATELET VOLUME 8.5 FL (7.0-11.0); MONO % 8.5 % (0.0-8.0); MONOCYTE # 0.6 TH/MM3 (0-0.9); NEUT % 83.9 % (16.0-70.0); PLATELET COUNT 184 TH/MM3 (150-450); RED BLOOD COUNT 3.96 MIL/MM3 (4.00-5.30); RED CELL DISTRIBUTION WIDTH 14.6 % (11.6-17.2); WHITE BLOOD COUNT 6.8 TH/MM3 (4.0-11.0)
[2017-06-24 02:35] LABS: PROTHROMBIN TIME - PATIENT 10.2 SEC (9.8-11.6)
[2017-06-24 02:52] LABS: ALBUMIN 2.7 GM/DL (3.4-5.0); BICARBONATE 24.8 MEQ/L (21.0-32.0); CALCIUM 7.1 MG/DL (8.5-10.1); CALCIUM-PROTEIN CORRECTED 8.1 MG/DL (8.5-10.1); CHOLESTEROL/ HDL RATIO 2.9 RATIO; CREATININE 1.15 MG/DL (0.50-1.00); HDL CHOLESTEROL 54.7 MG/DL (40.0-60.0); MAGNESIUM 1.7 MG/DL (1.5-2.5); PHOSPHORUS 3.5 MG/DL (2.5-4.9); TOTAL BILIRUBIN ADULT 0.3 MG/DL (0.2-1.0); TOTAL PROTEIN 5.3 GM/DL (6.4-8.2)
[2017-06-24] MEDS: RESP: ALBUTEROL 2.5 MG/IPRATROPIUM 0.5 MG NEB (SCH) INH ×4 (03:39→19:55)
[2017-06-24] MEDS: CHLORHEXIDINE GLUCONATE 2 % 1 PACK (2 CLOTHS) TOP SCH (04:00)
--- NOTE | 2017-06-24 07:39 | RADRPT ---
EXAM DATE/TIME: 06/24/2017 06:08 [facility] COMPARISON: CHEST SINGLE AP, June 23, 2017, 10:56. INDICATIONS : Short of breath MEDICAL HISTORY : Carcinoma, breast. SURGICAL HISTORY : right lumpectomy ENCOUNTER: Subsequent ACUITY: 2 days PAIN SCORE: Non-responsive. LOCATION: Bilateral chest FINDINGS: A single portable frontal view the chest shows coarse interstitial markings throughout both lungs. Th aileen are unchanged. No intra-alveolar infiltrates. No effusions. Heart is at the upper limits of annie l in terms of size. A scoliotic and degenerative spine. CONCLUSION: Chronic interstitial changes. No acute infiltrates. Fred William Jr., MD on June 24, 2017 at 7:34 Board Certified Radiologist. This report was verified electronically.
[2017-06-24] MEDS: FAMOTIDINE 20 MG TAB PO SCH ×2 (08:40→21:22)
[2017-06-24] MEDS: CARVEDILOL 3.125 MG TAB PO SCH ×2 (08:41→21:23)
[2017-06-24] MEDS: THIAMINE HCL 100 MG TAB PO SCH (08:41)
[2017-06-24] MEDS: ASPIRIN 81 MG CHEW TAB CHEW SCH (08:41)
[2017-06-24] MEDS: DOCUSATE SODIUM 50 MG/SENNA 8.6 MG TAB PO SCH ×2 (08:41→21:22)
[2017-06-24] MEDS: SODIUM CHLORIDE 0.9% FLUSH 10 ML FLUSH IV FLUSH SCH ×2 (08:41→21:21)
--- NOTE | 2017-06-24 08:50 | HHI.PR ---
Subjective Remarks Dritical clinical quality assurance specialist notes: Patient is a 86-year-old female with past medical history significant only for breast cancer. She presented to [facility] emergency department with complaints of generalized weakness and vomiting and diarrhea. Denied fever. Initially complained of some sternal pressure also. In the ER also had some substernal discomfort and tingling in her left UE. Initially was profoundly hypotensive with systolic blood pressure in the mid 50s heart rate in mid 140s. EKG shows atrial fibrillation with rapid ventricular response with ST depression in V2 through V6 and the inferior and lateral leads. Due to hemodynamic instability patient patient was given Versed 5 mg and was cardioverted initially with 100 J synchronized and she converted to sinus rhythm but went back to atrial fibrillation; repeated with 150 J and again converted to NSR and went back to atrial fibrillation. Respiration was quite shallow with the Versed and so further cardioversions not attempted. Labs showed WBC 11.4. potassium is slightly low at 3.4. BUN 28 with creatinine of 1.2. Initial Troponin was normal. Dr. Miramontes discussed the case with Dr. Snyder and started IV amiodarone and IV heparin and transferred to [facility]. Patient received multiple boluses of crystalloid and also received aspirin, Agriculture Specialist recommended Amiodarone drip and IV Heparin, converted to sinus rhythm, Coreg and Statin. 06/24: Seen by cryptographic center specialist, recommended to continue IV Heparin and IV Amiodarone, Echocardiogram, Telemetry, Left Heart Cath, seen in her bedroom after [facility], Selective right and left coronary angiography, left ventriculogram, EF 60% , Diagnosis of non obstructive Coronary artery disease, Elevated left ventricular end diastolic pressure, preserved left ventricular systolic function. recommended to continue aggressive medical management, continue rate control for atrial fibrillation, start oral anticoagulation upon discharge, follow with Cardiology after discharge. No nausea, vomit or diarrhea. Objective Vital Signs Date Time Temp Pulse Resp B/P (MAP) Pulse Ox O2 Delivery O2 Flow Rate FiO2 06/24/17 08:17 92 06/24/17 04:08 98 06/24/17 04:00 98.3 63 21 140/69 (92) 95 06/24/17 04:00 60 06/24/17 00:00 98.3 65 19 119/60 (79) 99 06/23/17 22:00 98.0 75 21 118/64 (82) 95 1/25/18 20:53 74 116/59 06/23/17 20:27 100 Nasal Cannula 1.00 06/23/17 20:00 98.9 69 15 111/70 (84) 97 06/23/17 20:00 69 06/23/17 18:00 79 06/23/17 16:00 79 06/23/17 15:38 98 Nasal Cannula 3.00 06/23/17 15:01 98.0 73 18 110/69 (83) 06/23/17 14:00 79 06/23/17 12:25 137 16 102/74 (83) 98 06/23/17 12:15 124 16 97/56 (70) 06/23/17 12:05 100.0 124 17 110/82 (91) Nasal Cannula 2.00 06/23/17 12:00 100.0 125 16 94/68 (77) Nasal Cannula 2.00 06/23/17 11:56 133 17 78/58 (65) 100 Nasal Cannula 2.00 06/23/17 11:50 129 18 85/70 (75) 96 Nasal Cannula 2.00 06/23/17 11:48 124 17 78/62 (67) 100 Nasal Cannula 06/23/17 11:22 120 68/55 06/23/17 11:00 135 76/55 06/23/17 10:40 140 17 79/54 (62) 96 Nasal Cannula 2.00 06/23/17 10:30 133 85/58 06/23/17 10:29 125 17 94/49 (64) 93 Nasal Cannula 2.00 06/23/17 10:21 128 16 75/51 (59) 93 Nasal Cannula 2.00 06/23/17 10:16 133 16 74/48 (57) 97 Nasal Cannula 2.00 06/23/17 10:10 135 16 78/59 (65) 94 Nasal Cannula 2.00 06/23/17 10:00 138 65/52 (56) Nasal Cannula 2.00 06/23/17 09:50 97.7 141 16 59/47 (51) I/O 06/23/17 06/23/17 06/23/17 06/24/17 06/24/17 06/24/17 07:00 15:00 23:00 07:00 15:00 23:00 Intake Total 2700 ml 200 ml Output Total 850 ml 0 ml Balance 2700 ml -850 ml 200 ml Intake Oral 200 ml IV Total 2700 ml Output Urine Total 850 ml 0 ml Bladder Scan Volume Amount 20 ml # Bowel Movements 0 Result Diagram: 06/24/17 0207 06/24/17 0207 Imaging Last Impressions Chest X-Ray 06/24/17 0600 Signed Impressions: Service Date/Time: Saturday, June 24, 2017 06:08 - CONCLUSION: Chronic interstitial changes. No acute infiltrates. Fred William Jr., MD Procedures 06/24: LHC, Selective right and left coronary angiography, left ventriculogram, EF 60%, Diagnosis of non obstructive Coronary artery disease, Elevated left ventricular end diastolic pressure, preserved left ventricular systolic function. recommended to continue aggressive medical management, continue rate control for atrial fibrillation, start oral anticoagulation upon discharge, follow with Cardiology after discharge. Other Results Laboratory Tests Test 06/23/17 10:00 06/23/17 11:41 06/23/17 13:30 06/23/17 16:59 Thyroid Stimulating Hormone 3rd Gen 3.880 uIU/ML Urine Collection Type CLEAN CATCH Urine Color YELLOW Urine Turbidity CLEAR Urine pH 6.0 Urine Specific [place] 1.016 Urine Protein TRACE mg/dL Urine Glucose (UA) NEG mg/dL Urine Ketones 40 mg/dL Urine Occult Blood NEG Urine Nitrite NEG Urine Bilirubin NEG Urine Leukocyte Esterase NEG Urine WBC 0-2 /hpf Microscopic Urinalysis Comment CULT NOT INDICATED Urine Collection Time 1141 Nasal Screen MRSA (PCR) MRSA NOT DETECTED Troponin I 3.06 NG/ML Test 06/23/17 18:42 06/24/17 02:07 White Blood Count 6.8 TH/MM3 Red Blood Count 3.96 MIL/MM3 Hemoglobin 12.3 GM/DL Hematocrit 36.0 % Mean Corpuscular Volume 91.0 FL Mean Corpuscular Hemoglobin 31.1 PG Mean Corpuscular Hemoglobin Concent 34.2 % Red Cell Distribution Width 14.6 % Platelet Count 184 TH/MM3 Mean Platelet Volume 8.5 FL Neutrophils (%) (Auto) 83.9 % Lymphocytes (%) (Auto) 7.2 % Monocytes (%) (Auto) 8.5 % Eosinophils (%) (Auto) 0.1 % Basophils (%) (Auto) 0.3 % Neutrophils # (Auto) 5.7 TH/MM3 Lymphocytes # (Auto) 0.5 TH/MM3 Monocytes # (Auto) 0.6 TH/MM3 Eosinophils # (Auto) 0.0 TH/MM3 Basophils # (Auto) 0.0 TH/MM3 CBC Comment DIFF FINAL Differential Comment Prothrombin Time 10.2 SEC Prothromb Time International Ratio 1.0 RATIO Activated Partial Thromboplast Time 46.7 SEC Blood Urea Nitrogen 30 MG/DL Creatinine 1.15 MG/DL Random Glucose 111 MG/DL Total Protein 5.3 GM/DL Albumin 2.7 GM/DL Calcium Level 7.1 MG/DL Phosphorus Level 3.5 MG/DL Magnesium Level 1.7 MG/DL Alkaline Phosphatase 64 U/L Aspartate Amino Transf (AST/SGOT) 106 U/L Alanine Aminotransferase (ALT/SGPT) 76 U/L Total Bilirubin 0.3 MG/DL Sodium Level 143 MEQ/L Potassium Level 3.6 MEQ/L Chloride Level 112 MEQ/L Carbon Dioxide Level 24.8 MEQ/L Anion Gap 6 MEQ/L Estimat Glomerular Filtration Rate 45 ML/MIN Lactic Acid Level 1.1 mmol/L Protein Corrected Calcium 8.1 MG/DL Total Creatine Kinase 241 U/L Creatine Kinase MB 19.0 NG/ML Creatine Kinase MB % 7.9 % Triglycerides Level 55 MG/DL Cholesterol Level 159 MG/DL LDL Cholesterol 93 MG/DL HDL Cholesterol 54.7 MG/DL Cholesterol/HDL Ratio 2.90 RATIO Objective Remarks GENERAL: No acute distress. SKIN: Warm and dry HEAD: Atraumatic. Normocephalic. EYES: Pupils equal and round. ENT: No nasal bleeding or discharge. NECK: Trachea midline. No JVD. CARDIOVASCULAR: S1-S2 normal. Unable to appreciate murmurs. Receiving IV heparin and IV amiodarone RESPIRATORY: No accessory muscle use. Clear to auscultation. Breath sounds equal bilaterally. GASTROINTESTINAL: Abdomen soft, non-tender, nondistended. Hepatic and splenic margins not palpable. MUSCULOSKELETAL: No obvious deformities. NEUROLOGICAL: Awake and alert. No obvious cranial nerve deficits. Motor grossly within normal limits. Normal speech. Medications and IVs Current Medications Medications (Trade) Dose Ordered Sig/Joseph Route Start Time Stop Time Status Last Admin (Heparin Inj) 5,000 units UNSCH PRN IV PUSH 06/23/17 16:30 (Heparin Inj) 2,500 units UNSCH PRN IV PUSH 06/23/17 16:30 Heparin Sodium/ Dextrose 250 ml @ 8 mls/hr TITRATE PRN IV 06/23/17 10:30 06/23/17 11:38 Sodium Chloride 1,000 ml @ 84 mls/hr [id number] IV 06/23/17 11:10 06/23/17 11:10 (NS Flush) 2 ml UNSCH PRN IV FLUSH 06/23/17 11:15 (NS Flush) 2 ml BID IV FLUSH 06/23/17 21:00 06/23/17 20:52 (Tylenol) 650 mg Q6H PRN PO 06/23/17 11:15 ([place] 5-325 Mg) 1 tab Q4H PRN PO 06/23/17 11:15 (Morphine Inj) 2 mg Q2H PRN IV PUSH 06/23/17 11:15 (Pepcid) 20 mg Q12HR PO 06/23/17 21:00 06/24/17 08:40 (Zofran Inj) 4 mg Q6H PRN IV PUSH 06/23/17 11:15 (Albuterol Neb) 2.5 mg Q2HR NEB PRN INH 06/23/17 11:15 Miscellaneous Information 1 Q361D XX 06/23/17 11:15 (Chlorhexidine 2% Cloth) 3 pack Taper DAILY@04 TOP 06/24/17 04:00 06/20/18 03:59 (Chlorhexidine 2% Cloth) 3 pack UNSCH PRN TOP 06/23/17 11:15 (Kika-Colace) 1 tab BID PO 06/23/17 21:00 (Milk Of Magnesia Liq) 30 ml Q12H PRN PO 06/23/17 11:15 (Senokot) 17.2 mg Q12H PRN PO 06/23/17 11:15 (Dulcolax Supp) 10 mg DAILY PRN RECTAL 06/23/17 11:15 (Lactulose Liq) 30 ml DAILY PRN PO 06/23/17 11:15 Phenylephrine HCl 160 mg/Dextrose 500 ml @ 7.5 mls/hr TITRATE PRN IV 06/23/17 11:15 (Brethine Inj) 1 mg UNSCH PRN SQ 06/23/17 11:15 (Vitamin B1) 100 mg DAILY PO 06/24/17 09:00 06/24/17 08:41 (Coreg) 3.125 mg Q12HR PO 06/23/17 21:00 06/24/17 08:41 (Duoneb Neb) 1 ampule Q6HR NEB INH 06/23/17 22:00 06/24/17 08:16 (Lipitor) 40 mg HS PO 06/23/17 21:00 06/23/17 20:52 Amiodarone HCl 450 mg/Sodium Chloride 250 ml @ 33.33 mls/ hr Q7H31M PRN IV 06/23/17 20:00 06/23/17 20:53 (Aspirin Chew) 81 mg DAILY CHEW 06/24/17 09:00 06/24/17 08:41 (Benadryl) 25 mg HS PRN PO 06/23/17 23:00 06/23/17 23:23 A/P Assessment and Plan NEURO: - Minimize sedation - Supplement thiamine RESP: - Nasal cannula oxygen, if needed - IS every 4 hours while awake - Check for influenza due to bilateral lung infiltrates CV: Atrial fibrillation with RVR Hypotension Elevated troponin/non-ST elevation ID - Status post cardioversion 2 - On amiodarone infusion converted to sinus rhythm - Continue IV heparin - Continue maintenance IV fluids - Start aspirin and beta blockers. Start Lipitor 40 mg daily - 06/24: LHC, Selective right and left coronary angiography, left ventriculogram , EF 60%, Diagnosis of non obstructive Coronary artery disease, Elevated left ventricular end diastolic pressure, preserved left ventricular systolic function. recommended to continue aggressive medical management, continue rate control for atrial fibrillation, start oral anticoagulation upon discharge, follow with Cardiology after discharge. GI: - Heart healthy diet, PO famotidine : Acute kidney injury Dehydration - Monitor renal function closely. Continue maintenance IV fluids - Received fluid boluses in the ED ID: - Check influenza antigen. Observe without antibiotics ENDO: Hypokalemia - Electrolyte replacement per protocol PROPH: - Bilateral lower extremity SCDs. IV heparin, PO famotidine Code Status Full Discussed Condition With patient. Discharge Planning Once cleared by cryptographic center specialist. Emmanuel Granados MD Jun 24, 2017 08:50
[2017-06-24] MEDS ORDERED: HEPARIN-NS/PF INJ 1,000 ML ONE (09:06)
[2017-06-24] MEDS ORDERED: MIDAZOLAM HCL 2 MG/2 ML VIAL ONE (09:06)
[2017-06-24] MEDS ORDERED: NITROGLYCERIN INJ 5 ML ONE (09:07)
[2017-06-24] MEDS ORDERED: HEPARIN SODIUM - IV 10,000 UNITS/10 ML VIAL ONE (09:07)
[2017-06-24] MEDS ORDERED: VERAPAMIL HCL 5 MG/2 ML VIAL ONE (09:13)
--- NOTE | 2017-06-24 09:23 | EKG ---
Date Performed: 06/23/2017 Time Performed: 18:18:59 PTAGE: 86 years EKG: Sinus rhythm NONSPECIFIC ST & T-WAVE ABNORMALITY BORDERLINE ECG PREVIOUS TRACING : 06/23/2017 09.49 Compared to previous tracing, sinus rhythm has replaced atr ial fibrillation, heart rate has slowed, marked diffuse ST depression has significantly improved. DOCTOR: Antony Herman Interpretating Date/Time 06/24/2017 09:22:33
[2017-06-24] MEDS ORDERED: ADENOSINE STRESS TEST INJ 90 MG/30 ML VIAL ONE (09:26)
--- NOTE | 2017-06-24 09:54 | CATHPROC ---
InMyShow HIS Report Study Information Study Number Admission Scheduled Start Study Start [id number] Jun 23 2017 11:20AM 06/24/2017 Jun 24 2017 8:41AM [place] [facility] Cardiac Catheterization Admit Source Facility Department Other [facility] - Manager Operations And Procurement Physician and Clinical Staff Initial MD Wilder, Parminder Distillery Manager Amanda Che,ITZ Other cathlab, cathlab Recorder Michele Conway RCIS(BS) Scrub Tammy Monsivais,RT(R) Procedures Performed Procedure Location (Site) Vessel Name Coronary Angiograms LCA Left Coronary Coronary Angiograms RCA Right Coronary L Heart Cath LV Gram-hand inj. LV LV Ventricle Wire insertion Radial (right) Radial Art. Equipment Time Noc Engineer Description Size Mfg Part Number Used/Scraped TRANSDUCER, TRUWAVE [id number] 08:42 Datacastle * Used W/STOCKCOCK *[id number] 08:42 Ascendify PACK, CCL CUSTOM * Used *[id number] 08:42 [employer]endify SUPPORT, ARTERIAL ADULT 74495 *[id number] Used [id number] 09:18 MEDTRONIC JL 3.5 DXTERITY CATHETER FR 5 Used *[id number] 09:18 MEDTRONIC JR 4.0 DXTERITY CATHETER FR 5 Used *[id number] 09:27 MEDTRONIC/AVE EBU 3.5 Z2 GUIDE CATHETER FR 6 Used *[id number] BAND, RADIAL COMPRESSION TR [id number] 09:23 [employer] DEVICES MEDICAL 24CM Used SHORT 24 *[id number] 09:27 [employer] MEDICAL PACK, ANGIOPLASTY * [id number] Used [id number] 08:42 [employer] MEDICAL WIRE, 3MMJ .035 180CM 180CM Used *[id number] 08:42 NAMIC MANIFOLD, 4 PORT * Used *[id number] 08:42 NYCOMED OMNIPAQUE, 350 MG, 150ML 150ML [id number] Used [id number] 08:42 [employer] MED[employer] BLANKET,WARM AIR CCL * Used *[id number] SHEATH, FR6 TRANSRADIAL RM*[id number] 08:42 [email or web address] MEDICAL FR 6 Used SLENDER 10CM *[id number] 09:26 [place] PRIME WIRE, VERRATA 185CM 185CM [id number] *[id number] Used History: Current Medications Medication Dosage/Unit Route Frequency Last Date/Time Taken Statins (any) Beta Vic ASA History: Allergies Allergy Reaction No Known Allergies latex History: Risk Factors Family History of Hypertension Dyslipidemia Previous PR Previous Heart Failure Premature CAD No No No No No Prior Valve Prior PCI Prior CABG Surgery No No No Cerebrovascular Peripheral Artery Chronic Lung On Dialysis Diabetes Disease Disease Disease No No No No No History: Symptoms/Diagnosis Selection Items Palpitations History: Stress Tests Stress or Imaging Studies Performed No History: Other Current Smoker Method Quit Packs a Day Years Used Pack Years No Cigarettes 55 Years Ago 1 20 20 Labs Hgb (g/dl) Hct (%) WBC (l/cumm) Platelets (thousands) 11.60-17.00 35.00-51.00 4.00-11.00 150.00-450.00 13.3 36 6.8 184 Glucose (mg/dl) BUN (mg/dl) Creatinine (mg/dl) BUN:Creatinine (1:x) 74.00-106.00 7.00-18.00 0.50-1.30 10.00-20.00 111 30 1.1 27.3 Na (meq/l) K (meq/l) 136.00-145.00 3.50-5.10 143 3.6 INR (PTT:PT) 0.90-1.10 1 CPK (u/l) CPK-MB (ng/ML) 26.00-308.00 0.50-3.60 241 19.0 Medication Medication Total Dose (Bolus/Oral) Medication Total Dosage/Unit 1% XYLOCAINE 3 mL FENTANYL 50 mcg HEPARIN 3000 units OXYGEN 2 l/min RADIAL COCKTAIL 5 mL (Bolus) VERSED 1 mg Medications (Bolus/Oral) Medication Time Given Dosage/Unit Administered By Reason OXYGEN 06/24/2017 9:16:02 AM 2 l/min Amanda Che Patient arrived on 2 l/min OXYGEN given by Amanda Che, RN via Nasal. Ordered by Genny Wilder oShabnam 1% XYLOCAINE 06/24/2017 9:16:25 AM 3 mL MikerParminder 3 mL 1% XYLOCAINE given in lab by Parminder Wilder in Right Radial via Subcutaneous. Ntg 200mcg Verapamil 2.5mg Heparin RADIAL COCKTAIL 06/24/2017 9:17:37 AM 5 mL (Bolus) Maritza Wilderro 2500U 5 mL (Bolus) RADIAL COCKTAIL given in lab by Parminder Wilder in Right Radial via Radial. Using [Liane ution Name]. Reason: Ntg 200mcg Verapamil 2.5mg Heparin 2500U. VERSED 06/24/2017 9:19:00 AM 1 mg Amanda Che 1 mg VERSED given in lab by Amanda Che RN in Left Antecubital via Peripheral IV. Ordered by Parminder Wade. FENTANYL 06/24/2017 9:20:02 AM 50 mcg Amanda Che 50 mcg FENTANYL given in lab by Amanda Che RN in Left Antecubital via Peripheral IV. Ordered by Parminder Wilder. HEPARIN 06/24/2017 9:27:21 AM 3000 units Amanda Che 3000 units HEPARIN given in lab by Amanda Che RN in Left Antecubital via Peripheral IV. Ordered by Parminder Wilder. Medication (Drip) Medication Time Given Dosage/Unit Concentration/Unit Diluent (ml) Solution ADENOSINE DRIP 06/24/2017 9:39:28 AM 140 mcg/kg/min 90 mg 90 NaCl .9 140 mcg/kg/min ADENOSINE DRIP given in lab by Amanda Che RN in Left Antecubital via Peripheral IV. Pump/Drip Flow = 556.08 ml/hr using NaCl .9 with a concentration of 90 mg in 90 ml. Ordered by Parminder Wilder. ADENOSINE DRIP 06/24/2017 9:42:01 AM 0 units/hr 0 D5W STOPPED 0 units/hr ADENOSINE DRIP STOPPED given in lab by Amanda Che RN in Left Antecubital via Periphe ral IV. Pump/Drip Flow = 0 ml/hr using D5W. Ordered by Parminder Wilder. Amiodarone Drip 06/24/2017 8:58:25 AM 17 mL/hr 450 mL 250 D5W Patient arrived on 17 mL/hr Amiodarone Drip in Right Antecubital via Peripheral IV. Pump/Drip Flow = 9.44 ml/hr using D5W with a concentration of 450 mL in 250 ml. IV Solutions 06/24/2017 8:58:25 AM 0 mL (IV) 500 NaCl .9 Patient arrived on IV Solutions in Left Antecubital via Peripheral IV. Pump/Drip Flow = 20 ml/hr usin g NaCl .9. Initial Case Assessment Cardiovascular HR Rhythm NIBP Chest Pain 74 SINUS 158/83 0 Edema Present Skin color Skin None Normal Warm Dry Circulatory - Right Pulses Dorsalis Pedis Femoral Radial 3 3 3 Scale (0,1,2,3,4,d) Scale (0,1,2,3,4,d) Neurological State Oriented to time-place- Alert Moves all extremities person Respiration - General Respiration Rate SpO2 (%) (B/min) 15 93 Final Case Assessment Cardiovascular HR Rhythm NIBP Chest Pain 77 SINUS 133/79 0 Edema Present Skin color Skin None Normal Warm Dry Circulatory - Right Pulses Dorsalis Pedis Femoral Radial 3 3 3 Scale (0,1,2,3,4,d) Scale (0,1,2,3,4,d) Neurological State Oriented to time-place- Alert Moves all extremities person Respiration - General Respiration Rate SpO2 (%) (B/min) 15 93 Chronological Log Time Study Chronological Log 8:58:07 Patient arrived via Bed. Heparin drip DCed upon arrival per MD. 8:58:09 Patient Name, D.O.B, / Armband Verified By R.N. 8:58:09 Consent signed by the physician and the patient and verified by the Manager Operations And Procurement staff. 8:58:12 Pre-op and post- op instructions given; patient acknowledges understanding of instructions. 8:58:12 Verbal Stimulation=2 Physical Stimulation=2 Airway=2 Respiration=2 TOTAL=8. (0=absent, 1=caceres ited, 2=present) 8:58:13 Presedation assessment performed by Manager Operations And Procurement RN. 8:58:14 Immediate Presedation assesment performed by physician. 8:58:14 Patient has been NPO for More than 6Hrs. 8:58:15 Skin Breakdown- none per patient 8:58:15 Patient Warmer Placed on the Table. 8:58:16 Annmarie Prominences Protected 8:58:19 Allens test performed on the right radial and ulnar artery. POSITIVE. 8:58:23 A # 20 IV was noted in the Antecubital (right). Grade = 0 8:58:24 A # 20 IV was noted in the Forearm (right). Grade = 0 8:58:24 A # 20 IV was noted in the Antecubital (left). Grade = 0 8:58:25 Patient arrived on IV Solutions in Left Antecubital via Peripheral IV. Pump/Drip Flow = 20 m l/hr using NaCl .9. Patient arrived on 17 mL/hr Amiodarone Drip in Right Antecubital via Peripheral IV. Pump/Drip Fl ow = 9.44 ml/hr using 8:58:25 D5W with a concentration of 450 mL in 250 ml. 8:58:26 History and physical on the chart or being dictated. 9:04:58 MD arrived. Vitals capture started with the following parameters, Patient=Adult, Interval=5 min, Initial Pre nwsvx=713 mmHg, 9:07:36 Deflation Rate=5 mmHg, Cuff placed on Right Arm 9:08:14 HR=73 bpm, IQVM=423/83 mmhg, SpO2=93.0 %, Resp=15 B/min, Pain=0, Oidlon=10, Martin=2 Assessment: Initial Case, HR=74 BPM, Rhythm=SINUS, YGKP=337/83 mmhg, Chest Pain=0, Edema=None, Color=Normal, Skin = Warm, Dry 9:08:43 Right Pulses: Zhang Ped=3, Femoral=3, Radial=3 Neurological: State=Alert, Ox3, MEHTA Respiration: Resp=15 B/min, SpO2=93 % 9:08:51 Reference ECG taken 9:09:11 Right Radial and groin(s) prepped with 2% chlorhexidine, and draped after a 3 min. waiting t med. 9:09:19 Contrast Scanned 9:09:20 Immediate Presedation assesment performed by physician. 9:13:15 HR=71 bpm, QIMC=752/91 mmhg, SpO2=92.0 %, Resp=13 B/min, Pain=0, Odilon=10, Martin=2 Time Out. Correct patient, correct procedure, correct physician, power injector loaded, or not l oaded with contrast with 9:14:55 surgical team present. Time Out Concurred by MD and individual staff in procedure. 9:14:56 Case Start 9:14:57 Verbal Stimulation=2 Physical Stimulation=2 Airway=2 Respiration=2 TOTAL=8. (0=absent, 1=caceres ited, 2=present) 9:16:02 Patient arrived on 2 l/min OXYGEN given by Amanda Che RN via Nasal. Ordered by Parminder Myers. 9:16:25 3 mL 1% XYLOCAINE given in lab by Parminder Wilder in Right Radial via Subcutaneous. 9:17:19 Access site was Right Radial Artery. A SHEATH, FR6 TRANSRADIAL SLENDER 10CM FR 6 was advanced into the Radial (right) using the Percu gregory 9:17:28 technique. 5 mL (Bolus) RADIAL COCKTAIL given in lab by Parminder Wilder in Right Radial via Radial. Using [Solution Name]. 9:17:37 Reason: Ntg 200mcg Verapamil 2.5mg Heparin 2500U. A JR 4.0 DXTERITY CATHETER FR 5 was advanced over a wire. OMNIPAQUE, 350 MG, 150ML 150ML was use d for 9:17:43 injections. 9:18:07 Pressure channel 1 zeroed. 9:18:14 HR=72 bpm, LFBY=062/83 mmhg, SpO2=94.0 %, Resp=15 B/min, Pain=0, Odilon=10, Martin=2 9:19:00 1 mg VERSED given in lab by Amanda Che RN in Left Antecubital via Peripheral IV. Order ed by Parminder Wilder. Recorded Pressure: LV, HR=75, Condition=Condition 1 9:19:20 (Left Ventricle) LV 135/0/12 9:19:27 The LV was manually injected with 10 cc's and visualized. OMNIPAQUE, 350 MG, 150ML 150ML use d. Recorded Pressure: LV, Ao, HR=78, Condition=Condition 1 9:19:49 (Left Ventricle) LV 136/12/20, (Aorta) Ao 144/82/109 50 mcg FENTANYL given in lab by Amanda Che RN in Left Antecubital via Peripheral IV. Order ed by Meño 9:20:02 Parminder. Recorded Pressure: Ao, HR=77, Condition=Condition 1 9:20:03 (Aorta) Ao 131/72/99 9:20:13 The RCA was injected and visualized at various angles. OMNIPAQUE, 350 MG, 150ML 150ML used. After removing the current catheter a JL 3.5 DXTERITY CATHETER FR 5 was advanced over a WIRE, 3M MJ .035 180CM 9:22:00 180CM. 9:22:25 The LCA was injected and visualized at various angles. OMNIPAQUE, 350 MG, 150ML 150ML used. 9:23:15 HR=79 bpm, HVFI=817/76 mmhg, SpO2=90.0 %, Resp=0 B/min, Pain=0, Odilon=10, Martin=2 After removing the current catheter a EBU 3.5 Z2 GUIDE CATHETER FR 6 was advanced over a WIRE, 3 MMJ .035 9:27:05 180CM 180CM. 3000 units HEPARIN given in lab by Amanda Che RN in Left Antecubital via Peripheral IV. Or dered by Meño 9:27:21 Parminder. 9:28:49 HR=73 bpm, CTCT=973/88 mmhg, SpO2=90 %, Resp=15 B/min, Pain=0, Odilon=10, Martin=2 9:33:18 HR=69 bpm, KKDZ=854/75 mmhg, SpO2=90 %, Resp=12 B/min, Pain=0, Odilon=10, Martin=2 9:34:36 Pressure channel 1 zeroed. 9:36:21 A PRIME WIRE, VERRATA 185CM 185CM was inserted via Radial (right). 9:38:11 HR=72 bpm, BBPR=168/85 mmhg, SpO2=93.0 %, Resp=15 B/min, Pain=0, Odilon=10, Martin=2 140 mcg/kg/min ADENOSINE DRIP given in lab by Amanda Che RN in Left Antecubital via Periph eral IV. Pump/Drip 9:39:28 Flow = 556.08 ml/hr using NaCl .9 with a concentration of 90 mg in 90 ml. Ordered by Parminder Wilder. 9:39:58 Flow Wire was was placed in the LAD Prox. The FFR measures 88 percent. The IFR measures ~IFR ~ Percent. 0 units/hr ADENOSINE DRIP STOPPED given in lab by Amanda Che RN in Left Antecubital via Pe ripheral IV. 9:42:01 Pump/Drip Flow = 0 ml/hr using D5W. Ordered by Parminder Wilder. 9:42:15 Wire removed 9:42:35 Catheter was removed 9:42:43 Case End Assessment: Final Case, HR=77 BPM, Rhythm=SINUS, UKXD=472/79 mmhg, Chest Pain=0, Edema=None, Color=Normal, Skin = Warm, Dry 9:42:55 Right Pulses: Zhang Ped=3, Femoral=3, Radial=3 Neurological: State=Alert, Ox3, MEHTA Respiration: Resp=15 B/min, SpO2=93 % 9:43:14 HR=75 bpm, PUKW=709/79 mmhg, SpO2=98.0 %, Resp=12 B/min, Pain=0, Odilon=10, Martin=2 9:44:00 Sterile dressing applied to site Radial Compression Device Used. 9 mLs of air placed in BAND, RADIAL COMPRESSION TR SHORT 24 24CM . Affected 9:44:02 hand 92 % O2 saturation. 9:44:03 No case complications noted. 9:44:05 Cine recording checked. 9:44:06 Bedside Report will be given. 9:44:09 Contrast Scanned 9:44:10 Verbal Stimulation=2 Physical Stimulation=2 Airway=2 Respiration=2 TOTAL=8. (0=absent, 1=caceres ited, 2=present) 9:44:17 A Left Heart Cath was performed. 9:48:50 HR=73 bpm, QKYN=379/80 mmhg, SpO2=92 %, Resp=13 B/min, Pain=0, Odilon=10, Martin=2 9:52:48 Vitals capture stopped. 9:52:51 Patient moved to [facility] End Study - Contrast Media Used In Study Contrast Total Opened (mL) Total Used (mL) Total Wasted (mL) Omnipaque 55 55 0 End Study - Maximum Contrast Load Max Contrast Load (mL) 300.8 End Study - Radiation Exposure Fluoro Time (minutes) 4.3 End Study - Patient Disposition Complications Transferred To Interventional Outcome No Manager Operations And Procurement Holding No attempt made
[2017-06-24] MEDS ORDERED: IOHEXOL 350 MG/ML 100 ML BTL (for Cath Lab) OTHER ONE (10:42)
--- NOTE | 2017-06-24 11:54 | MA ---
cc: CALIJACKIE Lezama DATE 06/24/2017 DATE OF 1930 PROCEDURE PERFORMED 1. Left heart catheterization. 2. Selective right and left coronary angiography. 3. Left ventriculogram. INDICATION FOR PROCEDURE Chest pain, elevated troponins, new onset atrial fibrillation. APPROACH Right transradial. PROCEDURE DESCRIPTION Consent was signed. The patient was prepped and draped in a sterile fashion. Using 1% lidocaine for local anesthesia and a micropuncture kit a 6 Occitan sheath was inserted in the right radial artery. An antispasmodic cocktail was given then selective right and left coronary angiography was performed with a JR 4.0 and JL 3.5 diagnostic catheter. Angiography was taken in multiple views. The JR 4.0 diagnostic catheter was introduced into the ventricle over a wire. This was followed by pressure recordings, left ventriculogram and pullback. The patient tolerated the procedure well. We identified a questionable proximal LAD lesion which was about 60-70% of which an FFR was performed. For this the left main was engaged with an EBU 3.5 guide. Heparin was given for IV anticoagulation. The pressure wire was normalized outside the lesion and then it was introduced to the distal LAD and adenosine infusion was started. Final value of the FFR was 0.91 which is negative for ischemia. The procedure was concluded. The patient tolerated the procedure without complications. Estimated blood loss was less than 10 cc. Total contrast used was 60 cc. The right wrist access site was closed with a TR band. RESULTS HEMODYNAMICS The left ventricular pressure was 136/12 with an LVEDP of 20. The aortic pressure was 131/72 with a mean of 99. There was no gradient upon pullback from the ventricle to the aorta. LEFT VENTRICULOGRAM The left ventriculogram revealed a symmetrically kasia ventricle with an ejection fraction of 60%. ANGIOGRAPHY 1. The right coronary artery is a dominant vessel giving off the PDA. This has some aneurysmatic changes and minimal luminal irregularities throughout, however, no significant obstructive CAD. The PDA and the posterolateral branches are patent without any significant obstructive lesions. 2. The left main is long and patent. It is giving off the left circumflex artery and the LAD. 3. The LAD is a transapical vessel. It is giving off two diagonal branches which are patent. The LAD distally is tortuous. In the proximal segment of the LAD before S1 there is a 60% eccentric lesion which was negative for ischemia by FFR with a value 0.91. 4. The left circumflex artery is giving two main obtuse marginal branches which are tortuous and patent. There is a small segment AV groove circumflex which is also patent with JUDI-III flow, however, this part is again small. CONCLUSIONS 1. Nonobstructive coronary artery disease. 2. Elevated LVEDP. 3. Preserved LV systolic function. RECOMMENDATIONS 1. Continue aggressive medical management for primary prevention of CAD. 2. Continue rate control for atrial fibrillation and start oral anticoagulation upon discharge. 3. Follow with cardiology upon discharge. 4. Holter monitor MD SHEMAR White/GALILEO /9:45 AM /11:35 AM AILIN
[2017-06-24] MEDS: SODIUM CHLOR 0.9% 1000 ML INJ 1,000 ML IV SCH ×2 (15:46→22:55)
[2017-06-24] MEDS: HEPARIN-D5W 25,000 U/250 ML 250 ML IV PRN (15:47)
--- NOTE | 2017-06-24 18:48 | ECHRPT ---
Indication: atrial fib CONCLUSIONS The left ventricular systolic function is normal with an estimated ejection fraction in the range of 55-60%. Oxch-ls-ydqdgioa mitral valve regurgitation. There is mild tricuspid valve regurgitation. BP: 140 / 69 HR: 63 Rhythm: Sinus MEASUREMENTS (Male / Female) Normal Values Technical Quality:Fair 2D ECHO LV Diastolic Diameter PLAX 4.4 cm 4.2 - 5.9 / 3.9 - 5.3 cm LV Systolic Diameter PLAX 3.4 cm IVS Diastolic Thickness 0.9 cm 0.6 - 1.0 / 0.6 - 0.9 cm LVPW Diastolic Thickness 0.9 cm 0.6 - 1.0 / 0.6 - 0.9 cm LV Relative Wall Thickness 0.4 RV Internal Dim ED PLAX 2.4 cm LVOT Diameter 1.7 cm LA Systolic Diameter LX 3.1 cm 3.0 - 4.0 / 2.7 - 3.8 cm LV Ejection Fraction MOD 4C 67.8 % LV Cardiac Index MOD 4C 1444.0 cm/minm LV Ejection Fraction 4C AL 69.9 % LV Cardiac Index 4C AL 1567.2 cm/minm M-MODE Aortic Root Diameter MM 2.7 cm LA Systolic Diameter MM 3.2 cm LA Ao Ratio MM 1.2 AV Cusp Separation MM 1.9 cm DOPPLER AV Peak Velocity 152.0 cm/s AV Peak Gradient 9.2 mmHg LVOT Peak Velocity 113.0 cm/s LVOT Peak Gradient 5.1 mmHg AV Area Cont Eq pk 1.7 cm MV Area PHT 4.2 cm Mitral E Point Velocity 105.0 cm/s Mitral A Point Velocity 77.5 cm/s Mitral E to A Ratio 1.4 LV E' Lateral Velocity 6.9 cm/s Mitral E to LV E' Lateral Ratio 15.2 LV E' Septal Velocity 6.3 cm/s Mitral E to LV E' Septal Ratio 16.6 TR Peak Velocity 290.0 cm/s TR Peak Gradient 33.6 mmHg Right Atrial Pressure 10.0 mmHg Pulmonary Artery Systolic Pressu 43.6 mmHg Right Ventricular Systolic Press 43.6 mmHg PV Peak Velocity 81.4 cm/s PV Peak Gradient 2.7 mmHg FINDINGS LEFT VENTRICLE The left ventricular systolic function is normal with an estimated ejection fraction in the range of 55-60%. Normal left ventricular size. Wall thickness is normal. No regional wall motion abnormalities are present. RIGHT VENTRICLE Grossly normal right ventricle LEFT ATRIUM The left atrial size is upper limits of normal. RIGHT ATRIUM The right atrial size is upper limits of normal. ATRIAL SEPTUM Normal atrial septal thickness. AORTA The aortic root and proximal ascending aorta are normal in size on limited imaging. MITRAL VALVE Structurally normal mitral valve. Yppn-pn-chorsmrx mitral valve regurgitation. No mitral valve stenosis. AORTIC VALVE Trileaflet aortic valve. Aortic valve sclerosis is present. No aortic valve regurgitation. TRICUSPID VALVE Structurally normal tricuspid valve. There is mild tricuspid valve regurgitation. The estimated pulmonary arterial pressure is 43.6 mmHg. PULMONARY VALVE No pulmonary valve regurgitation or stenosis. VESSELS The inferior vena cava is normal in size. PERICARDIUM No pericardial effusion. Patricio Gong DO (Electronically Signed) Final Date:24 June 2017 18:47
[2017-06-24] MEDS: ATORVASTATIN 40 MG TAB PO SCH (21:22)
[2017-06-25] VITALS (8 sets, daily range): BP systolic 121–148; BP diastolic 67–71; PULSE 66–73; RESP 20–21; TEMP 98.1–99.7; O2SAT 93–94
[2017-06-25] MEDS: CHLORHEXIDINE GLUCONATE 2 % 1 PACK (2 CLOTHS) TOP SCH (03:04)
[2017-06-25] MEDS: RESP: ALBUTEROL 2.5 MG/IPRATROPIUM 0.5 MG NEB (SCH) INH ×3 (05:49→16:00)
--- NOTE | 2017-06-25 08:25 | HHI.PR ---
Subjective Remarks Dritical health care marketing specialist notes: Patient is a 86-year-old female with past medical history significant only for breast cancer. She presented to [facility] emergency department with complaints of generalized weakness and vomiting and diarrhea. Denied fever. Initially complained of some sternal pressure also. In the ER also had some substernal discomfort and tingling in her left UE. Initially was profoundly hypotensive with systolic blood pressure in the mid 50s heart rate in mid 140s. EKG shows atrial fibrillation with rapid ventricular response with ST depression in V2 through V6 and the inferior and lateral leads. Due to hemodynamic instability patient patient was given Versed 5 mg and was cardioverted initially with 100 J synchronized and she converted to sinus rhythm but went back to atrial fibrillation; repeated with 150 J and again converted to NSR and went back to atrial fibrillation. Respiration was quite shallow with the Versed and so further cardioversions not attempted. Labs showed WBC 11.4. potassium is slightly low at 3.4. BUN 28 with creatinine of 1.2. Initial Troponin was normal. Dr. Miramontes discussed the case with Dr. Snyder and started IV amiodarone and IV heparin and transferred to [facility]. Patient received multiple boluses of crystalloid and also received aspirin, Personal Lines Account Executive recommended Amiodarone drip and IV Heparin, converted to sinus rhythm, Coreg and Statin. 06/24: Seen by engagement specialist, recommended to continue IV Heparin and IV Amiodarone, Echocardiogram, Telemetry, Left Heart Cath, seen in her bedroom after [facility], Selective right and left coronary angiography, left ventriculogram, EF 60% , Diagnosis of non obstructive Coronary artery disease, Elevated left ventricular end diastolic pressure, preserved left ventricular systolic function. recommended to continue aggressive medical management, continue rate control for atrial fibrillation, start oral anticoagulation upon discharge, follow with Cardiology after discharge. 06/25: Stable in her bedroom discussed with Doctor Patricio Gong, he will see the patient and let me know if is ready for discharge, No nausea, vomit or diarrhea. Objective Vital Signs Date Time Temp Pulse Resp B/P (MAP) Pulse Ox O2 Delivery O2 Flow Rate FiO2 06/25/17 04:00 68 06/25/17 04:00 98.1 72 20 148/67 (94) 93 06/25/17 00:00 99.7 73 20 148/67 (94) 93 06/24/17 23:00 75 06/24/17 20:00 68 06/24/17 20:00 98.5 71 20 151/81 (104) 96 06/24/17 19:55 95 Nasal Cannula 4.00 06/24/17 16:05 99.3 72 20 190/87 (121) 92 06/24/17 16:00 72 06/24/17 10:01 93 Room Air I/O 06/24/17 06/24/17 06/24/17 06/25/17 06/25/17 06/25/17 07:00 15:00 23:00 07:00 15:00 23:00 Intake Total 200 ml 240 ml Output Total 0 ml Balance 200 ml 240 ml Intake Oral 200 ml 240 ml Output Urine Total 0 ml Bladder Scan Volume Amount 20 ml # Voids 4 3 # Bowel Movements 0 0 Result Diagram: 06/24/17 0207 06/24/17 020 Imaging Last Impressions Chest X-Ray 06/24/17 0600 Signed Impressions: Service Date/Time: Saturday, June 24, 2017 06:08 - CONCLUSION: Chronic interstitial changes. No acute infiltrates. Fred William Jr., MD Procedures 06/24: [facility], Selective right and left coronary angiography, left ventriculogram, EF 60%, Diagnosis of non obstructive Coronary artery disease, Elevated left ventricular end diastolic pressure, preserved left ventricular systolic function. recommended to continue aggressive medical management, continue rate control for atrial fibrillation, start oral anticoagulation upon discharge, follow with Cardiology after discharge. Other Results Laboratory Tests Test 06/23/17 10:00 06/23/17 11:41 06/23/17 13:30 06/23/17 16:59 Thyroid Stimulating Hormone 3rd Gen 3.880 uIU/ML Urine Collection Type CLEAN CATCH Urine Color YELLOW Urine Turbidity CLEAR Urine pH 6.0 Urine Specific [place] 1.016 Urine Protein TRACE mg/dL Urine Glucose (UA) NEG mg/dL Urine Ketones 40 mg/dL Urine Occult Blood NEG Urine Nitrite NEG Urine Bilirubin NEG Urine Leukocyte Esterase NEG Urine WBC 0-2 /hpf Microscopic Urinalysis Comment CULT NOT INDICATED Urine Collection Time 1141 Nasal Screen MRSA (PCR) MRSA NOT DETECTED Troponin I 3.06 NG/ML Test 06/23/17 18:42 06/24/17 02:07 06/24/17 23:39 White Blood Count 6.8 TH/MM3 Red Blood Count 3.96 MIL/MM3 Hemoglobin 12.3 GM/DL Hematocrit 36.0 % Mean Corpuscular Volume 91.0 FL Mean Corpuscular Hemoglobin 31.1 PG Mean Corpuscular Hemoglobin Concent 34.2 % Red Cell Distribution Width 14.6 % Platelet Count 184 TH/MM3 Mean Platelet Volume 8.5 FL Neutrophils (%) (Auto) 83.9 % Lymphocytes (%) (Auto) 7.2 % Monocytes (%) (Auto) 8.5 % Eosinophils (%) (Auto) 0.1 % Basophils (%) (Auto) 0.3 % Neutrophils # (Auto) 5.7 TH/MM3 Lymphocytes # (Auto) 0.5 TH/MM3 Monocytes # (Auto) 0.6 TH/MM3 Eosinophils # (Auto) 0.0 TH/MM3 Basophils # (Auto) 0.0 TH/MM3 CBC Comment DIFF FINAL Differential Comment Prothrombin Time 10.2 SEC Prothromb Time International Ratio 1.0 RATIO Blood Urea Nitrogen 30 MG/DL Creatinine 1.15 MG/DL Random Glucose 111 MG/DL Total Protein 5.3 GM/DL Albumin 2.7 GM/DL Calcium Level 7.1 MG/DL Phosphorus Level 3.5 MG/DL Magnesium Level 1.7 MG/DL Alkaline Phosphatase 64 U/L Aspartate Amino Transf (AST/SGOT) 106 U/L Alanine Aminotransferase (ALT/SGPT) 76 U/L Total Bilirubin 0.3 MG/DL Sodium Level 143 MEQ/L Potassium Level 3.6 MEQ/L Chloride Level 112 MEQ/L Carbon Dioxide Level 24.8 MEQ/L Anion Gap 6 MEQ/L Estimat Glomerular Filtration Rate 45 ML/MIN Lactic Acid Level 1.1 mmol/L Protein Corrected Calcium 8.1 MG/DL Total Creatine Kinase 241 U/L Creatine Kinase MB 19.0 NG/ML Creatine Kinase MB % 7.9 % Triglycerides Level 55 MG/DL Cholesterol Level 159 MG/DL LDL Cholesterol 93 MG/DL HDL Cholesterol 54.7 MG/DL Cholesterol/HDL Ratio 2.90 RATIO Activated Partial Thromboplast Time 29.1 SEC Objective Remarks GENERAL: No acute distress. SKIN: Warm and dry HEAD: Atraumatic. Normocephalic. EYES: Pupils equal and round. ENT: No nasal bleeding or discharge. NECK: Trachea midline. No JVD. CARDIOVASCULAR: S1-S2 normal. Unable to appreciate murmurs. Receiving IV heparin and IV amiodarone RESPIRATORY: No accessory muscle use. Clear to auscultation. Breath sounds equal bilaterally. GASTROINTESTINAL: Abdomen soft, non-tender, nondistended. Hepatic and splenic margins not palpable. MUSCULOSKELETAL: No obvious deformities. NEUROLOGICAL: Awake and alert. No obvious cranial nerve deficits. Motor grossly within normal limits. Normal speech. Medications and IVs Current Medications Medications (Trade) Dose Ordered Sig/Joseph Route Start Time Stop Time Status Last Admin (Heparin Inj) 5,000 units UNSCH PRN IV PUSH 06/23/17 16:30 (Heparin Inj) 2,500 units UNSCH PRN IV PUSH 06/23/17 16:30 06/25/17 02:56 Heparin Sodium/ Dextrose 250 ml @ 8 mls/hr TITRATE PRN IV 06/23/17 10:30 06/24/17 15:47 Sodium Chloride 1,000 ml @ 84 mls/hr [id number] IV 06/23/17 11:10 06/24/17 15:46 (NS Flush) 2 ml UNSCH PRN IV FLUSH 06/23/17 11:15 (NS Flush) 2 ml BID IV FLUSH 06/23/17 21:00 06/24/17 21:21 (Tylenol) 650 mg Q6H PRN PO 06/23/17 11:15 ([place] 5-325 Mg) 1 tab Q4H PRN PO 06/23/17 11:15 (Morphine Inj) 2 mg Q2H PRN IV PUSH 06/23/17 11:15 (Zofran Inj) 4 mg Q6H PRN IV PUSH 06/23/17 11:15 (Albuterol Neb) 2.5 mg Q2HR NEB PRN INH 06/23/17 11:15 Miscellaneous Information 1 Q361D XX 06/23/17 11:15 (Chlorhexidine 2% Cloth) 3 pack Taper DAILY@04 TOP 06/24/17 04:00 06/20/18 03:59 (Chlorhexidine 2% Cloth) 3 pack UNSCH PRN TOP 06/23/17 11:15 (Kika-Colace) 1 tab BID PO 06/23/17 21:00 06/24/17 21:22 (Milk Of Magnesia Liq) 30 ml Q12H PRN PO 06/23/17 11:15 (Senokot) 17.2 mg Q12H PRN PO 06/23/17 11:15 (Dulcolax Supp) 10 mg DAILY PRN RECTAL 06/23/17 11:15 (Lactulose Liq) 30 ml DAILY PRN PO 06/23/17 11:15 Phenylephrine HCl 160 mg/Dextrose 500 ml @ 7.5 mls/hr TITRATE PRN IV 06/23/17 11:15 (Brethine Inj) 1 mg UNSCH PRN SQ 06/23/17 11:15 (Vitamin B1) 100 mg DAILY PO 06/24/17 09:00 06/24/17 08:41 (Coreg) 3.125 mg Q12HR PO 06/23/17 21:00 06/24/17 21:23 (Duoneb Neb) 1 ampule Q6HR NEB INH 06/23/17 22:00 06/25/17 05:49 (Lipitor) 40 mg HS PO 06/23/17 21:00 06/24/17 21:22 Amiodarone HCl 450 mg/Sodium Chloride 250 ml @ 33.33 mls/ hr Q7H31M PRN IV 06/23/17 20:00 06/23/17 20:53 (Aspirin Chew) 81 mg DAILY CHEW 06/24/17 09:00 06/24/17 08:41 (Benadryl) 25 mg HS PRN PO 06/23/17 23:00 06/23/17 23:23 (Pepcid) 10 mg Q12HR PO 06/24/17 21:00 06/24/17 21:22 A/P Assessment and Plan NEURO: - Minimize sedation - Supplement thiamine RESP: - Nasal cannula oxygen, if needed - IS every 4 hours while awake - Check for influenza due to bilateral lung infiltrates CV: Atrial fibrillation with RVR Hypotension Elevated troponin/non-ST elevation IN - Status post cardioversion 2 - On amiodarone infusion converted to sinus rhythm - Continue IV heparin - Continue maintenance IV fluids - Start aspirin and beta blockers. Start Lipitor 40 mg daily - 06/24: [facility], Selective right and left coronary angiography, left ventriculogram , EF 60%, Diagnosis of non obstructive Coronary artery disease, Elevated left ventricular end diastolic pressure, preserved left ventricular systolic function. recommended to continue aggressive medical management, continue rate control for atrial fibrillation, start oral anticoagulation upon discharge, follow with Cardiology after discharge. GI: - Heart healthy diet, PO famotidine : Acute kidney injury Dehydration - Improving. ENDO: Hypokalemia - Electrolyte replacement per protocol PROPH: - Bilateral lower extremity SCDs. IV heparin, PO famotidine Code Status Full Discussed Condition With patient and Doctor Patricio Gong awaiting his okay to discharge Discharge Planning Once cleared by engagement specialist. Emmanuel Granados MD Jun 25, 2017 08:25
[2017-06-25] MEDS: THIAMINE HCL 100 MG TAB PO SCH (08:59)
[2017-06-25] MEDS: SODIUM CHLORIDE 0.9% FLUSH 10 ML FLUSH IV FLUSH SCH (09:00)
[2017-06-25] MEDS: ASPIRIN 81 MG CHEW TAB CHEW SCH (09:00)
[2017-06-25] MEDS: CARVEDILOL 3.125 MG TAB PO SCH (09:00)
[2017-06-25] MEDS: DOCUSATE SODIUM 50 MG/SENNA 8.6 MG TAB PO SCH (09:00)
[2017-06-25] MEDS: FAMOTIDINE 20 MG TAB PO SCH (09:00)
[2017-06-25] MEDS: SODIUM CHLOR 0.9% 1000 ML INJ 1,000 ML IV SCH (09:01)
--- NOTE | 2017-06-25 16:49 | PD.CARD.PN ---
Subjective Subjective Remarks Follow up for Dr. Snyder Patient post catheterization Doing well, no complaints Objective Medications Current Medications Medications (Trade) Dose Ordered Sig/Joseph Route Start Time Stop Time Status Last Admin (Heparin Inj) 5,000 units UNSCH PRN IV PUSH 06/23/17 16:30 (Heparin Inj) 2,500 units UNSCH PRN IV PUSH 06/23/17 16:30 06/25/17 02:56 Heparin Sodium/ Dextrose 250 ml @ 8 mls/hr TITRATE PRN IV 06/23/17 10:30 06/24/17 15:47 Sodium Chloride 1,000 ml @ 84 mls/hr [id number] IV 06/23/17 11:10 06/25/17 09:01 (NS Flush) 2 ml UNSCH PRN IV FLUSH 06/23/17 11:15 (NS Flush) 2 ml BID IV FLUSH 06/23/17 21:00 06/24/17 21:21 (Tylenol) 650 mg Q6H PRN PO 06/23/17 11:15 ([place] 5-325 Mg) 1 tab Q4H PRN PO 06/23/17 11:15 (Morphine Inj) 2 mg Q2H PRN IV PUSH 06/23/17 11:15 (Zofran Inj) 4 mg Q6H PRN IV PUSH 06/23/17 11:15 (Albuterol Neb) 2.5 mg Q2HR NEB PRN INH 06/23/17 11:15 Miscellaneous Information 1 Q361D XX 06/23/17 11:15 (Chlorhexidine 2% Cloth) 3 pack Taper DAILY@04 TOP 06/24/17 04:00 06/20/18 03:59 (Chlorhexidine 2% Cloth) 3 pack UNSCH PRN TOP 06/23/17 11:15 (Kika-Colace) 1 tab BID PO 06/23/17 21:00 06/24/17 21:22 (Milk Of Magnesia Liq) 30 ml Q12H PRN PO 06/23/17 11:15 (Senokot) 17.2 mg Q12H PRN PO 06/23/17 11:15 (Dulcolax Supp) 10 mg DAILY PRN RECTAL 06/23/17 11:15 (Lactulose Liq) 30 ml DAILY PRN PO 06/23/17 11:15 Phenylephrine HCl 160 mg/Dextrose 500 ml @ 7.5 mls/hr TITRATE PRN IV 06/23/17 11:15 (Brethine Inj) 1 mg UNSCH PRN SQ 06/23/17 11:15 (Vitamin B1) 100 mg DAILY PO 06/24/17 09:00 06/25/17 08:59 (Coreg) 3.125 mg Q12HR PO 06/23/17 21:00 06/25/17 09:00 (Duoneb Neb) 1 ampule Q6HR NEB INH 06/23/17 22:00 06/25/17 05:49 (Lipitor) 40 mg HS PO 06/23/17 21:00 06/24/17 21:22 Amiodarone HCl 450 mg/Sodium Chloride 250 ml @ 33.33 mls/ hr Q7H31M PRN IV 06/23/17 20:00 06/23/17 20:53 (Aspirin Chew) 81 mg DAILY CHEW 06/24/17 09:00 06/24/17 08:41 (Benadryl) 25 mg HS PRN PO 06/23/17 23:00 06/23/17 23:23 (Pepcid) 10 mg Q12HR PO 06/24/17 21:00 06/24/17 21:22 Vital Signs / I&O Vital Signs Date Time Temp Pulse Resp B/P (MAP) Pulse Ox O2 Delivery O2 Flow Rate FiO2 06/25/17 14:05 68 06/25/17 12:09 98.6 66 20 121/70 (87) 93 06/25/17 10:00 70 06/25/17 08:08 98.9 70 20 136/67 (90) 94 06/25/17 04:00 68 06/25/17 04:00 98.1 72 20 148/67 (94) 93 06/25/17 00:00 99.7 73 20 148/67 (94) 93 06/24/17 23:00 75 06/24/17 20:00 68 06/24/17 20:00 98.5 71 20 151/81 (104) 96 06/24/17 19:55 95 Nasal Cannula 4.00 I/O 1/26/18 1/26/18 1/26/18 1/27/18 1/27/18 1/27/18 07:00 15:00 23:00 07:00 15:00 23:00 Intake Total 200 ml 240 ml Output Total 0 ml Balance 200 ml 240 ml Intake Oral 200 ml 240 ml Output Urine Total 0 ml Bladder Scan Volume Amount 20 ml # Voids 4 3 # Bowel Movements 0 0 Physical Exam GENERAL: NAD, AAOx3 SKIN: Warm and dry. HEAD: Atraumatic. Normocephalic. EYES: Pupils equal and round. No scleral icterus. No injection or drainage. ENT: No nasal bleeding or discharge. Mucous membranes pink and moist. NECK: Trachea midline. No JVD. CARDIOVASCULAR: Regular rate and rhythm. RESPIRATORY: No accessory muscle use. Clear to auscultation. Breath sounds equal bilaterally. GASTROINTESTINAL: Abdomen soft, non-tender, nondistended. Hepatic and splenic margins not palpable. MUSCULOSKELETAL: Extremities without clubbing, cyanosis, or edema. No obvious deformities. Right radial no hematoma, neurovascularly intact distally NEUROLOGICAL: Awake and alert. No obvious cranial nerve deficits. Motor grossly within normal limits. Five out of 5 muscle strength in the arms and legs. Normal speech. PSYCHIATRIC: Appropriate mood and affect; insight and judgment normal. Laboratory Laboratory Tests Test 06/24/17 23:39 06/25/17 12:00 Activated Partial Thromboplast Time 29.1 SEC 41.9 SEC Assessment and Plan Problem List: (1) Atrial fibrillation with RVR ICD Codes: I48.91 - Unspecified atrial fibrillation (2) Hypotension ICD Codes: I95.9 - Hypotension, unspecified (3) Viral syndrome ICD Codes: B34.9 - Viral infection, unspecified (4) Dehydration ICD Codes: E86.0 - Dehydration (5) [place] (acute kidney injury) ICD Codes: N17.9 - Acute kidney failure, unspecified Assessment and Plan 1) NSTEMI secondary to Afib with RVR/Cardioversion No ASA on discharge as she is going home on Eliquis 2) Afib with RVR s/p Cardioversion x2 Con't with Coreg Plan Holter outpatient Started on Eliquis 3) EF 55-60% 4) Moderate CAD by catheterization 5) No further cardiovascular workup at this time Cardiovascularly stable for discharge Plan to follow up with Cardiology upon discharge Problem Qualifiers (1) Hypotension: Qualified Codes: I95.9 - Hypotension, unspecified Patricio Gong DO Jun 25, 2017 16:49
[2017-06-25] MEDS ORDERED: APIXABAN 5 MG TABLET PO SCH (17:00)
[2017-06-25] MEDS ORDERED: CARV3.125 PO (17:47)
[2017-06-25] MEDS ORDERED: APIX5TAB PO (17:47)
[2017-06-25] MEDS ORDERED: ATOR40TA16 PO (17:47)
[2017-06-25] MEDS ORDERED: ASPI81 CHEW (17:47)
--- NOTE | 2017-06-25 17:50 | HHI.DS ---
Discharge Summary Admission Date Jun 23, 2017 at 11:20 Discharge Date: Jun 25, 2017 Admitting Diagnosis RAPID ATRIAL FIBRILLATION, HYPOTENSION (1) Atrial fibrillation with RVR ICD Code: I48.91 - Unspecified atrial fibrillation Diagnosis: Principal (2) Hypotension ICD Code: I95.9 - Hypotension, unspecified Diagnosis: Principal (3) NSTEMI (non-ST elevated myocardial infarction) ICD Code: I21.4 - Non-ST elevation (NSTEMI) myocardial infarction Diagnosis: Principal (4) Viral syndrome ICD Code: B34.9 - Viral infection, unspecified Diagnosis: Principal (5) CORETTA (acute kidney injury) ICD Code: N17.9 - Acute kidney failure, unspecified Diagnosis: Principal (6) Dehydration ICD Code: E86.0 - Dehydration Diagnosis: Principal Procedures 06/24: [facility], Selective right and left coronary angiography, left ventriculogram, EF 60%, Diagnosis of non obstructive Coronary artery disease, Elevated left ventricular end diastolic pressure, preserved left ventricular systolic function. recommended to continue aggressive medical management, continue rate control for atrial fibrillation, start oral anticoagulation upon discharge, follow with Cardiology after discharge. Brief History - From Admission Patient is a 86-year-old female with past medical history significant only for breast cancer. She presented to [facility] emergency department with complaints of generalized weakness and vomiting and diarrhea. Denied fever. Initially complained of some sternal pressure also. In the ER also had some substernal discomfort and tingling in her left UE. Initially was profoundly hypotensive with systolic blood pressure in the mid 50s heart rate in mid 140s. EKG shows atrial fibrillation with rapid ventricular response with ST depression in V2 through V6 and the inferior and lateral leads. Due to hemodynamic instability patient patient was given Versed 5 mg and was cardioverted initially with 100 J synchronized and she converted to sinus rhythm but went back to atrial fibrillation; repeated with 150 J and again converted to NSR and went back to atrial fibrillation. Respiration was quite shallow with the Versed and so further cardioversions not attempted. Labs showed WBC 11.4. potassium is slightly low at 3.4. BUN 28 with creatinine of 1.2. Initial Troponin was normal. Dr. Miramontes discussed the case with Dr. Snyder and started IV amiodarone and IV heparin and transferred to [facility]. Patient received multiple boluses of crystalloid and also received aspirin I evaluated the patient once she arrived in the main hospital ICU. Patient appears to have converted to sinus rhythm currently remains on amiodarone and IV heparin. Appears in mild distress and anxious. Her new troponin is 3. 2-D echo is pending. Continue IV heparin and IV amiodarone. Placed on scheduled aspirin. Placed on low-dose Coreg. Also will start Lipitor 40 mg daily at bedtime. CBC/BMP: 06/24/17 0207 06/24/17 0207 Significant Findings Laboratory Tests Test 06/23/17 10:00 06/23/17 11:41 06/23/17 13:30 06/23/17 16:59 White Blood Count 11.4 TH/MM3 (4.0-11.0) Hematocrit 46.4 % (35.0-46.0) Mean Corpuscular Hemoglobin Concent 31.6 % (32.0-36.0) Neutrophils (%) (Auto) 93.8 % (16.0-70.0) Lymphocytes (%) (Auto) 4.0 % (9.0-44.0) Neutrophils # (Auto) 10.7 TH/MM3 (1.8-7.7) Lymphocytes # (Auto) 0.5 TH/MM3 (1.0-4.8) Blood Urea Nitrogen 28 MG/DL (7-18) Creatinine 1.20 MG/DL (0.50-1.00) Random Glucose 178 MG/DL (74-106) Calcium Level 8.2 MG/DL (8.5-10.1) Potassium Level 3.4 MEQ/L (3.5-5.1) Estimat Glomerular Filtration Rate 43 ML/MIN (>89) Troponin I LESS THAN 0.02 NG/ML 3.06 NG/ML (0.02-0.05) Thyroid Stimulating Hormone 3rd Gen 3.880 uIU/ML (0.358-3.740) Urine Ketones 40 mg/dL (NEG) Test 06/23/17 17:09 06/23/17 18:42 06/24/17 02:07 06/24/17 23:39 Activated Partial Thromboplast Time 79.4 SEC (24.3-30.1) 46.7 SEC (24.3-30.1) Red Blood Count 3.96 MIL/MM3 (4.00-5.30) Neutrophils (%) (Auto) 83.9 % (16.0-70.0) Lymphocytes (%) (Auto) 7.2 % (9.0-44.0) Monocytes (%) (Auto) 8.5 % (0.0-8.0) Lymphocytes # (Auto) 0.5 TH/MM3 (1.0-4.8) Blood Urea Nitrogen 30 MG/DL (7-18) Creatinine 1.15 MG/DL (0.50-1.00) Random Glucose 111 MG/DL (74-106) Total Protein 5.3 GM/DL (6.4-8.2) Albumin 2.7 GM/DL (3.4-5.0) Calcium Level 7.1 MG/DL (8.5-10.1) Aspartate Amino Transf (AST/SGOT) 106 U/L (15-37) Alanine Aminotransferase (ALT/SGPT) 76 U/L (10-53) Chloride Level 112 MEQ/L (98-107) Estimat Glomerular Filtration Rate 45 ML/MIN (>89) Protein Corrected Calcium 8.1 MG/DL (8.5-10.1) Total Creatine Kinase 241 U/L (26-192) Creatine Kinase MB 19.0 NG/ML (0.5-3.6) Creatine Kinase MB % 7.9 % (0.0-4.0) Test 06/25/17 12:00 Activated Partial Thromboplast Time 41.9 SEC (24.3-30.1) Imaging Last Impressions Chest X-Ray 06/24/17 0600 Signed Impressions: Service Date/Time: Saturday, June 24, 2017 06:08 - CONCLUSION: Chronic interstitial changes. No acute infiltrates. Fred William Jr., MD PE at Discharge GENERAL: No acute distress. SKIN: Warm and dry HEAD: Atraumatic. Normocephalic. EYES: Pupils equal and round. ENT: No nasal bleeding or discharge. NECK: Trachea midline. No JVD. CARDIOVASCULAR: S1-S2 normal. Unable to appreciate murmurs. Receiving IV heparin and IV amiodarone RESPIRATORY: No accessory muscle use. Clear to auscultation. Breath sounds equal bilaterally. GASTROINTESTINAL: Abdomen soft, non-tender, nondistended. Hepatic and splenic margins not palpable. MUSCULOSKELETAL: No obvious deformities. NEUROLOGICAL: Awake and alert. No obvious cranial nerve deficits. Motor grossly within normal limits. Normal speech. Hospital Course allergy and immunology specialist notes: Patient is a 86-year-old female with past medical history significant only for breast cancer. She presented to [facility] emergency department with complaints of generalized weakness and vomiting and diarrhea. Denied fever. Initially complained of some sternal pressure also. In the ER also had some substernal discomfort and tingling in her left UE. Initially was profoundly hypotensive with systolic blood pressure in the mid 50s heart rate in mid 140s. EKG shows atrial fibrillation with rapid ventricular response with ST depression in V2 through V6 and the inferior and lateral leads. Due to hemodynamic instability patient patient was given Versed 5 mg and was cardioverted initially with 100 J synchronized and she converted to sinus rhythm but went back to atrial fibrillation; repeated with 150 J and again converted to NSR and went back to atrial fibrillation. Respiration was quite shallow with the Versed and so further cardioversions not attempted. Labs showed WBC 11.4. potassium is slightly low at 3.4. BUN 28 with creatinine of 1.2. Initial Troponin was normal. Dr. Miramontes discussed the case with Dr. Snyder and started IV amiodarone and IV heparin and transferred to [facility]. Patient received multiple boluses of crystalloid and also received aspirin, Receiver Stocker recommended Amiodarone drip and IV Heparin, converted to sinus rhythm, Coreg and Statin. 06/24: Seen by relocation services specialist, recommended to continue IV Heparin and IV Amiodarone, Echocardiogram, Telemetry, Left Heart Cath, seen in her bedroom after [facility], Selective right and left coronary angiography, left ventriculogram, EF 60% , Diagnosis of non obstructive Coronary artery disease, Elevated left ventricular end diastolic pressure, preserved left ventricular systolic function. recommended to continue aggressive medical management, continue rate control for atrial fibrillation, start oral anticoagulation upon discharge, follow with Cardiology after discharge. 06/25: Stable in her bedroom discussed with Doctor Patricio Gong, he will see the patient and let me know if is ready for discharge, No nausea, vomit or diarrhea. Assessment and Plan NEURO: - Minimize sedation - Supplement thiamine RESP: - Nasal cannula oxygen, if needed - IS every 4 hours while awake - Check for influenza due to bilateral lung infiltrates CV: Atrial fibrillation with RVR Hypotension Elevated troponin/non-ST elevation DE - Status post cardioversion 2 - On amiodarone infusion converted to sinus rhythm - Continue IV heparin - Continue maintenance IV fluids - Start aspirin and beta blockers. Start Lipitor 40 mg daily - 06/24: [facility], Selective right and left coronary angiography, left ventriculogram , EF 60%, Diagnosis of non obstructive Coronary artery disease, Elevated left ventricular end diastolic pressure, preserved left ventricular systolic function. recommended to continue aggressive medical management, continue rate control for atrial fibrillation, start oral anticoagulation upon discharge, follow with Cardiology after discharge. as per Doctor yulissa recommended No Aspirin on Discharge, continue Eliquis , continue Coreg, plan for outpatient Holter Monitoring. Moderate CAD by Catheterization but no further cardiovascular workup needed at this time, follow Cardiology upon discharge. GI: - Heart healthy diet, PO famotidine : Acute kidney injury Dehydration - Improving. ENDO: Hypokalemia - Electrolyte replacement per protocol PROPH: - Bilateral lower extremity SCDs. IV heparin, PO famotidine Code Status Full Discussed Condition With patient and Doctor Patricio Gong awaiting his okay to discharge Discharge Planning Once cleared by relocation services specialist. Pt Condition on Discharge: Good Discharge Disposition: Discharge Home Discharge Time: <= 30 minutes Discharge Instructions DIET: Follow Instructions for: Heart Healthy Diet Activities you can perform: Regular-No Restrictions Emmanuel Granados MD Jun 25, 2017 17:50
[2017-06-28 16:20] LABS: INFLUENZA A AB IGM <1:10 (<1:10)
== END 2017-06-25 18:39 | disposition home or self-care (01) | DRG 281 ==
LOC: PHED 09:33 → PHEDA 11:20 → HIME 13:25 → N04B 21:43
PROVIDERS: ADMIT Internal Medicine Critical Care Medicine; ATTEND Internal Medicine
PROC: 5A2204Z Restoration of Cardiac Rhythm, Single (ICD-10-PCS; 2017-06-23)
PROC: B2111ZZ Fluoroscopy of Multiple Coronary Arteries using Low Osmolar Contrast (ICD-10-PCS; 2017-06-24)
PROC: B2151ZZ Fluoroscopy of Left Heart using Low Osmolar Contrast (ICD-10-PCS; 2017-06-24)
PROC: 4A023N7 Measurement of Cardiac Sampling and Pressure, Left Heart, Percutaneous Approach (ICD-10-PCS; principal; 2017-06-24 10:00)
DX: I48.91 Unspecified atrial fibrillation (principal); I21.4 Non-ST elevation (NSTEMI) myocardial infarction; N17.9 Acute kidney failure, unspecified; I95.9 Hypotension, unspecified; E86.0 Dehydration; E87.6 Hypokalemia; R53.1 Weakness; I25.10 Atherosclerotic heart disease of native coronary artery without angina pectoris; B34.9 Viral infection, unspecified; Z85.3 Personal history of malignant neoplasm of breast; Z92.3 Personal history of irradiation; Z85.828 Personal history of other malignant neoplasm of skin
CPT/HCPCS: 71045; 80053; 80061; 81001; 82550; 82552; 82948; 83605; 83735; 84100; 84132; 84443; 84484; 85025; 85610; 85730; 86710; 87040; 87641; 92960; 93005; 93306; 93458; 93571; 94150; 94640; 94664; 96365; 96375; 99152; C1769; C1887; C1893; J0153; J0282; J1644; J2250; J2405; J3010; J3480; J7030; J7040; J7050; J7060; Q9967